=== PATIENT | male | born 2000 | race African-American/Black ===

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

== ENCOUNTER 2019-04-29 11:17 | Inpatient (IN) | payer OTHER, MEDICAID ==
[~2019-04-29] VITALS: Ht 154.9 cm; Wt 57.6 kg
[~2019-04-29 11:17] MED LIST changes: +NUTREN 2.0250 ML GT; +POTASSIUM CHLO20 ME1 GT
--- NOTE | 2019-04-29 11:34 | NUR ---
AGENCY DOCUMENTATION DONE BY Staff Name/Title - : [employer] [facility] User ID - : [id number] Agency Name - : [employer] Time Documented - From - : 699 To - : 1929
--- NOTE | 2019-04-29 11:37 | NUR ---
ASSUMED PATIENT CARE, NURSING ASSESSMENT COMPLETED.
[2019-04-29 12:54] LABS: PLATELET COUNT 146 x10^3mcL (130-400)
[2019-04-29 12:57] LABS: BASOPHIL % 0.2 % (0-2)
[2019-04-29 12:59] LABS: RED CELL DISTRIBUTION WIDTH 14.6 % (11.5-14.5)
[2019-04-29 13:18] LABS: CALCIUM 8.4 mg/dL (8.5-10.1); CARBON DIOXIDE 26.3 mmol/L (21-32); CHLORIDE SERUM 98 mmol/L (98-107); CREATININE SERUM 0.4 mg/dL (0.7-1.3); GFR1 > 60 mL/min; GLUCOSE SERUM 91 mg/dL (74-106); POTASSIUM SERUM 4.2 mmol/L (3.5-5.1); SODIUM SERUM 135 mmol/L (136-145)
[2019-04-29 13:27] LABS: T3 TOTAL 1.19 ng/mL
--- NOTE | 2019-04-29 13:29 | NUR ---
UNABLE TO START PERIPHERAL IV DESPITE MULTIPLE ATTEMPTS, DR MCPHERSON AWARE.
[2019-04-29 13:30] LABS: ALKALINE PHOSPHATASE 52 U/L (46-116); ALT/SGPT 30 U/L (16-63); AST/SGOT 26 U/L (15-37); BILIRUBIN TOTAL 0.3 mg/dL (0.20-1.00); TOTAL PROTEIN, SERUM 8.1 g/dL (6.4-8.2)
[2019-04-29 13:35] LABS: ALBUMIN 2.8 g/dL (3.4-5.0)
[2019-04-29 13:37] LABS: FREE T4 1.01 ng/dL (0.76-1.46); FREE THYROXINE INDEX 2.4 ug/dL (1.4-4.5); T4(THYROXINE) 6.8 ug/dL (4.7-13.3)
[2019-04-29 13:40] LABS: C REACTIVE PROTEIN 20.6 mg/dL (<=0.9)
[2019-04-29 15:18] LABS: ERYTHROCYTE SED RATE 69 mm/hr (0-15)
--- NOTE | 2019-04-29 15:49 | NUR ---
FR 16 FC INSERTED PER MD ORDER.
[2019-04-29 16:09] LABS: microscopic required? NO
[2019-04-29 16:13] LABS: urine erythrocyte NEGATIVE (NEGATIVE)
--- NOTE | 2019-04-29 16:55 | NUR ---
DISPO AND MEDICAL DECISION MAKING, INPATIENT ADMISSION FOR FURTHER MANAGEMENT. PATIENT CARE REPORT ENDORSED TO VICKY SWANSON.
[2019-04-29 17:08] VITALS: BP 105/51
[2019-04-29 17:09] VITALS: Ht 154.9 cm; Wt 57.6 kg
--- NOTE | 2019-04-29 18:45 | NUR ---
RECEIVED PT FROM ER, PT ADMIT FOR SUSHILA PNA, DEHYDRATION. PT IS AWAKE BUT NONVERBAL. UNABLE TO FOLLOW COMMAND. LUNG SOUND DIM BILATERAL, NO RESPIRATORY DISTRESS, PO2 94% IN ROOM AIR. PT IS ON TELE 8, ST, NO S/S OF CHEST PAIN, BOWEL SOUND PRESENT ALL 4 QUADRANTS, NO DISTENTION, PEG TUBE IS IN PLACE, PEDAL PULSE PRESENT BOTH FEET, NO EDEMA, BLE IS CONTRACTED. IV AT LEFT HAND, NO LEAKING, NO INFILTRAITON. ALL ADLS ASSIST, ALL NEED MET, CALL LIGHT IN REACH, WILL CONTINUE TO MONITOR.
--- NOTE | 2019-04-29 19:06 | NUR ---
AT 1700 - RECEIVED PATIENT FROM ER NURSE. ADMITTED WITH DX OF BILATERAL PNEUMONIA AND DEHYDRATION. PATIENT IS AWAKE, NON-VERBAL. HISTORY AND INITIAL ASSESSMENT DONE BY RESOURCE NURSE. PATIENT HAS HAD BM - SOFT, YELLOW STOOL. WASHED AND POSITIONED FOR COMFORT. SKIN APPEARS INTACT. IV INFUSING DOSE OF LEVAQUIN AND SECOND LITER OF BOLUS. GRECO CATHETER DRAINING YELLOW URINE AT 1800 - IV BOLUS COMPLETE. BP 144/105. HR 107. COMMENCED IV FLUID OF NS AT 100 ML/HR. ALSO COMMENCED ON IV ZOSYN. FIRST DOSE IN PROGRESS. 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 AT 1830 - URINE OUTPUT 600 ML VIA GRECO. PATIENT IS AWAKE, ALERT . MOVING IN BED. RECEIVED CALL FROM SHEBA, CLINIC PHYSICIAN AT [facility] IN [place]. TEL: [phone]. AT 1910 - CARE ENDORSED TO NIGHT NURSE.
--- NOTE | 2019-04-29 19:29 | NUR ---
PT IN BED AWAKE NON VERBAL DOESNT FOLLOW COMMANDS NO DISTRESS LUNGS DIM BILAT BASES, NO S/SX OF PAIN, DRY AND CRUSTY ORAL MUCOSA, IVF INFUSING WELL NS @ 100CC/HR IV ACCESS LEFT HAND PATENT NON INFIL, PEG TUBE CLAMPED, F/C DRAINING FREELY DARK YELLOW URINE OUTPUT, NO SEDIMENTS, SCD'S APPLIED FOR DVT PROPHYLAXIS, CONTRACTED BLE TELE #[address] HR @ 115, NO ECTOPIES, CONTACT ISOLATION MRSA NARES POSTED, SHIFT ASSESSMENT DONE, REPOSITIONED TO COMFORT CONT TO MONITOR.
[2019-04-29 22:19] VITALS: BP 119/90
--- NOTE | 2019-04-29 22:32 | NUR ---
DR. DIALLO MADE AWARE OF AMMONIA 56
--- NOTE | 2019-04-30 00:22 | NUR ---
PT AWAKE WITH BEHAV EPISODES OF BANGING SELF TOWARDS THE BED, BOUNCING LIKE MOVEMENT, RESTLESS, RISPERDAL GIVEN PER PRN ORDER FOR THE BEHAV, REPOSITIONED AND KEEP DRY AND CLEAN, BM X1 YELLOW AND PASTY, CONT TO MONITOR.
--- NOTE | 2019-04-30 00:41 | NUR ---
FOLLOWED UP PHARMACIST RE: VANCOMYCIN ORDER, PHARMACY TO DOSE, PER YUAN ROBERTSON MD DC'D VANCOMYCIN.
--- NOTE | 2019-04-30 03:24 | NUR ---
PT SLEEPING INTERMITTENT STILL WITH EPISODES OF BANGING SELF TOWARDS THE BED, NO DISTRESS, OCC NON PRODUCTIVE COUGH, ON IV ATB INDICATED, NO ADV REACTION REPOSITIONED ROUTINELY, VISUAL CHECKED AT INTERVALS.
[2019-04-30 06:41] VITALS: BP 147/96
[2019-04-30 07:13] LABS: BASOPHIL % 0.1 % (0-2); PLATELET COUNT 149 x10^3mcL (130-400); RED CELL DISTRIBUTION WIDTH 14.3 % (11.5-14.5)
[2019-04-30 07:14] LABS: CALCIUM 7.9 mg/dL (8.5-10.1); CARBON DIOXIDE 23.3 mmol/L (21-32); CHLORIDE SERUM 105 mmol/L (98-107); CREATININE SERUM 0.6 mg/dL (0.7-1.3); GFR1 > 60 mL/min; GLUCOSE SERUM 88 mg/dL (74-106); MAGNESIUM 1.9 mg/dL (1.8-2.4); PHOSPHOROUS 3.2 mg/dL (2.5-4.9); POTASSIUM SERUM 3.8 mmol/L (3.5-5.1); SODIUM SERUM 140 mmol/L (136-145)
--- NOTE | 2019-04-30 08:00 | NUR ---
RECEIVED THIS AM AWAKE, NON VERBAL. ROCKING BACK AND FORTH IN BED.SIDE RAILS UP AND PADDED FOR SAFETY. NO ACUTE RESP. DISTRESS NOTED. NO S/S OF PAIN OR DISCOMFORT. GRECO CATH IN PLACE DRAINING CLEAR YELLOW URINE TO GRAVITY. GTUBE CLAMPED AT THIS TIME. PT REPOSITIONED IN BED FOR COMFORT. WILL CONTINUE TO MONITOR.
[2019-04-30 08:13] VITALS: BP 117/81
--- NOTE | 2019-04-30 11:35 | NUR ---
PT APPEARS VERY DROWSY AND LETHARGIC. NO ACUTE RESP. DISTRESS NOTED. NOTIFIED. WILL CONTINUE TO MONITOR.
--- NOTE | 2019-04-30 15:13 | NUR ---
REPOSITIONED IN BED FOR COMFORT. NO ACUTE DISTRESS NOTED. NO S/S OF PAIN
[2019-04-30 16:23] VITALS: BP 118/70
--- NOTE | 2019-04-30 18:17 | NUR ---
GTUBE FEEDING STARTED, PT TOLERATING WELL. NO N/V NOTED.PT HAS LOOSE BM PRIOR TO START OF FEEDING, NONE AT THIS TIME. REPOSITIONED IN BED FOR COMFORT. NO ACUTE RESP. DISTRESS NOTED. NO S/S OF PAIN OR DISCOMFORT.
--- NOTE | 2019-04-30 19:05 | NUR ---
RECIEVED PT FROM PREVIOUS SHIFT NURSE. PT AWAKE, NONVERBAL, UNABLE TO FOLLOW COMMANDS. ON TELE #8, ST, HR 120. LUNG SOUNDS DIMINISHED, ON RA. NO SOB/DIFFICULTY BREATHING NOTED. G TUBE IN PLACE, TUBE FEED INFUSING AT 30ML/H. GRECO CATH IN PLACE, YELLOW OUTPUT NOTED. IV TO R. HAND, INTACT AND PATENT. BED IN LOWEST POSITION. CALL LIGHT WITHIN REACH. WILL CONTINUE TO MONITOR.
--- NOTE | 2019-04-30 19:07 | NUR ---
REMAINS IN NO DISTRESS, AWAKE BUT NON VERBAL. NO S/S OF OAIN OR DISCOMFORT. NO CHANGES IN VS. IVRF INFUSING WELL AND SITE CLEAR. MASON. WELL WITH TUBE FEEDING. REPOSITIONED IN BED WITH HOB ELEVETED. SIDE RAILS UP. WILL BE ENDORSED TO INCOMING SHIFT.
[2019-04-30 20:30] VITALS: BP 128/91
--- NOTE | 2019-04-30 22:00 | NUR ---
CHECKED RESIDUAL, LESS THAN 5ML NOTED AND REPLACED. TUBE FEEDING ADVANCED TO 40 ML/H.
--- NOTE | 2019-05-01 00:31 | NUR ---
PT RESTING IN BED. IN NO ACUTE DISTRESS. CALL LIGHT WITHIN REACH. BED IN LOWEST POSITION. WILL CONTINUE TO MONITOR.
[2019-05-01 05:41] VITALS: BP 117/79
--- NOTE | 2019-05-01 06:18 | NUR ---
PT CONTINUES TO REST IN BED IN NO ACUTE DISTRESS. NO PAIN/DISCOMFORT NOTED THROUGHOUT NIGHT. BED IN LOWEST POSITION. CALL LIGHT WITHIN REACH. WILL CONTINUE TO MONITOR.
[2019-05-01 06:29] LABS: BASOPHIL % 0.3 % (0-2); PLATELET COUNT 200 x10^3mcL (130-400)
[2019-05-01 06:56] LABS: CALCIUM 7.8 mg/dL (8.5-10.1); CARBON DIOXIDE 24.9 mmol/L (21-32); CHLORIDE SERUM 104 mmol/L (98-107); CREATININE SERUM 0.5 mg/dL (0.7-1.3); GFR1 > 60 mL/min; GLUCOSE SERUM 96 mg/dL (74-106); MAGNESIUM 1.9 mg/dL (1.8-2.4); PHOSPHOROUS 3.3 mg/dL (2.5-4.9); POTASSIUM SERUM 3.1 mmol/L (3.5-5.1); SODIUM SERUM 141 mmol/L (136-145)
[2019-05-01 07:03] LABS: RED CELL DISTRIBUTION WIDTH 14.7 % (11.5-14.5)
--- NOTE | 2019-05-01 07:35 | NUR ---
RECEIVED AWAKE, SMILING . NO ACUTE RESP. DISTRESS NOTED. ON RA SATS 96%. NO S/S OF DISCOMFORT. IVF INFUSING WELL. PT TOLERATING WELL WITH FEEDING. NO N/V NO RESIDUAL. SIDE RAILS UP AND PADDEDED. WILL CONTINUE WITH PLAN OF CARE.
[2019-05-01 09:52] VITALS: BP 126/78
[2019-05-01 13:00] VITALS: BP 142/105
--- NOTE | 2019-05-01 13:46 | NUR ---
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,grade 3 intraventricular hemorrhage,chronic lung disease ,aspiration pneumonia G-tube,GERD,healed tracheostomy and sleep-related hypoxia PSHx: ventricular shunt Labs: (05/01) K:3.1L, Ca:7.8L, Hct:39L (04/29) Ammonia:56H Meds: Cogentin, Colace, KCL, Lopressor, Phenobarbital, Risperdal, Valium, Valproic acid, Zestril and Zosyn Current nutrition Support: Jevity 1.2@ 40ml/hr GRV: (05/01) 0ml Ht: 61in, 5'1" Wt: 127#, 57.606kg BMI:24kg/m2(nornal) Bed scale: unable to obtain accurate weight as patient is on an air mattress IBW:112#51kg %IBW: 113% UBW: unable to obtain info Age: 18 y/o male Food Allergies: NKFA Skin:intact Jean:13 Edema: None GI: active bowel sounds Last BM:04/30 Consult: PEG TF Per H&P, pt was brought in for "more lethargic than normal" since yesterday. Per progress note 04/30, pt started Jevity at 40ml/hr. During visit, pt was seen laying in bed with TF running as ordered. Spoke to Dr. Aburto Sayed over the phonw and rec to increase TF rate to 55ml/hr better meet pts estimated needs. Per RN Fatemeh, pt is tolerating TF with no N/V. Problem with: N/V/D/C: No Problems with: Chewing/ Swallowing: pt with G-tube Current appetite: pt with G-tube Recent wt change:+12# since last admit in November 2018 %wt change: 11% Vitamin/Supplement use: Calcium Carbonate/Vitamin D3 (Calcium 600 + Vit D 400 Softgl) 1 EACH GT TID Special diet at home: Nutren 2.0 2.5 bottles Physical activity:No Nutrition education given (specify specific nutrition education and handout given): not appropriae due to patient with developmental delay Food-drug interactions? Phenobarbital Education given?no, due to pt with developmental delay Estimated Nutritional Needs Based on actual body weight 58kg Energy: 1450-1740kcal/d (25-30kcal/kg for maintenance) Protein:58-70g/d (1-1.2g/kg for maintenance) Fluid:4714-3883 ml/d (1 ml/kcal) or per doctor Nutrition Diagnosis 1. Inadequate enteral infusion rate related to low TF rate as evidenced by current TF rate only meets 66% caloric needs and 75% protein needs. Intervention 1. Recommend increase Jevity 1.2 to 55ml/hr to provide 1584kcal, 73g protein and 1065ml fluid. This meets 100% caloric needs and 104% protein needs. Recommend FWF:50ml q 6hr to provide an additional 300ml fluid. Monitor/Evaluate Goal: TF intake at least 75% of estimated needs Monitor: TF intake/tolerance, Labs, GI function and weights F/U in 2-3 days as high risk:05/03-
--- NOTE | 2019-05-01 13:46 | NUR ---
REPOSITIONED IN BED FOR COMFORT. NO ACUTE DISTRESS NOTED. NO S/S OF PAIN.
--- NOTE | 2019-05-01 16:40 | NUR ---
DOSING ON AND OFF, NO ACUTE DISTRESS NOTED.
[2019-05-01 16:56] VITALS: BP 147/98
--- NOTE | 2019-05-01 18:54 | NUR ---
REMAINS IN NO DISTRESS, AWAKE. NON VERBAL. NO S/S OF PAIN OR DISCOMFORT. TOLERATING WELL WITH FEEDING. NO N/V NOR DIARRHEA, NO RESIDUAL NOTED. VS REMAINS WNL. SIDE RAILS UP. WILL BE ENDORSED TO INCOMING SHIFT.
--- NOTE | 2019-05-01 19:10 | NUR ---
RECEIVED PT FROM PREVIOUS SHIFT NURSE. PT AWAKE, NONVERBAL. ON TELE #8, ST, HR 123. NO S/S PAIN/DISCOMFORT. LUNG SOUNDS DIMINISHED, ON RA. TUBE FEED INFUSING AT 40 ML/H. RESIDUAL CHECKED, LESS THAN 5ML REPLACED. AIR MATTRESS IN PLACE. LINEAR OPENING ON COCCYX. IV TO L. HAND, INTACT AND PATENT. BED IN LOWEST POSITION. CALL LIGHT WITHIN REACH. WILL CONTINUE TO MONITOR.
[2019-05-01 20:04] VITALS: BP 113/88
--- NOTE | 2019-05-01 22:07 | NUR ---
RESIDUAL LESS THAN 5ML, REPLACED. FEEDING INCREASED TO 45 ML/H, WILL CONTINUE TO MONITOR.
--- NOTE | 2019-05-02 00:48 | NUR ---
PT STICKING HANDS IN MOUTH CAUSING HIMSELF TO VOMIT. PER NURSE AT BOARD AND CARE, PT DOES THIS WHEN HIS FEEDING IS INFUSING TOO QUICKLY. RESIDUAL CHECKED, LESS THAN 5ML, REPLACED.
--- NOTE | 2019-05-02 03:07 | NUR ---
PT RESTING IN BED. RR EVEN AND UNLABORED. IN NO ACUTE DISTRESS. CALL LIGHT WITHIN REACH. BED IN LOWEST POSITION. WILL CONTINUE TO MONITOR.
[2019-05-02 05:20] VITALS: BP 133/93
[2019-05-02 06:44] LABS: BASOPHIL % 0.3 % (0-2); PLATELET COUNT 220 x10^3mcL (130-400)
--- NOTE | 2019-05-02 07:10 | NUR ---
RECEIVED PT FROM ALEKSEY RN. PT AWAKE AND ALERT, NONVERBAL. NO S/S OF ACUTE DISTRESS. NO S/S OF PAIN. RECEIVING RT TREATMENT AT THIS TIME. NO S/S OF ACUTE RESPIRATORY DISTRESS. NO SOB. RR EVEN/UNLABORED. IV WNL TO LH, PATENT AND FLUSHES WELL. GRECO IN TACT DRAINING TO GRAVITY, NO DEPENDENT LOOPS. NO N/V. NO REECE. NO DIZZINESS. NO S/S OF CHEST PAIN. PEG TO LLQ RUNNING AT 40CC/HR WITH FREE H20 FLUSH 50CC Q 4 HRS. <5 CC RESIDUAL OUTPUT. TOLERATING WELL AT THIS TIME. FALL PRECAUTIONS IN PLACE. PT IN ROOM CLOSE TO NURSES STATION. SIDE RAILS UP X2. SEIZURE PREC IN PLACE. AIR MATTRESS IN PLACE. BED IN LOW POSITION. CALL LIGHT WITHIN REACH. WILL CONTINUE TO MONITOR
[2019-05-02 07:12] LABS: CALCIUM 8.6 mg/dL (8.5-10.1); CARBON DIOXIDE 22.6 mmol/L (21-32); CHLORIDE SERUM 105 mmol/L (98-107); CREATININE SERUM 0.5 mg/dL (0.7-1.3); GFR1 > 60 mL/min; GLUCOSE SERUM 92 mg/dL (74-106); POTASSIUM SERUM 3.7 mmol/L (3.5-5.1); SODIUM SERUM 142 mmol/L (136-145)
[2019-05-02 07:30] LABS: RED CELL DISTRIBUTION WIDTH 14.9 % (11.5-14.5)
[2019-05-02 08:08] VITALS: BP 117/79
--- NOTE | 2019-05-02 12:00 | NUR ---
PT LAYING IN BED. NO S/S OF ACUTE DISTRESS. HOB ELEVATED >45 DEGREES. TUBE FEEDING RUNNING AT 40CC/HR. TOLERATING WELL. NO N/V. RESIDUAL <10CC. REPLACED. IV WNL TO LH, PATENT AND FLUSHES WELL. FALL PRECAUTIONS IN PLACE. SEIZURE PREC IN PLACE. AIR MATTRESS IN PLACE. CALL LIGHT WITHIN REACH. BED IN LOW POSITION. WILL CONTINUE TO MONITOR.
[2019-05-02 12:02] VITALS: BP 110/72
[2019-05-02 16:16] VITALS: BP 119/65
--- NOTE | 2019-05-02 16:40 | NUR ---
PT LAYING IN BED. NSR ON TELE, HR 96, NO SOB ON ROOM AIR. NO S/S OF PAIN. NO S/S OF ACUTE DISTRESS. IV WNL TO LH, PATENT AND FLUSHES WELL. TUBE FEEDING RUNNING AT 40CC/HR. TOLERATING WELL. NO N/V/D. 15CC RESIDUAL NOTED. BLE ELEVATED WITH PILLOW. SCDS IN PLACE. AIR MATTRESS IN PLACE. GRECO IN TACT DRAINING TO GRAVITY. PEG TUBE IN TACT TO LLQ ABD. BED IN LOW POSITION. SEIZURE PREC IN PLACE. CALL LIGHT WITHIN REACH. FALL PREC IN PLACE. WILL CONTINUE TO MONITOR.
--- NOTE | 2019-05-02 18:23 | NUR ---
PT LAYING IN BED. AWAKE, ALERT. NONVERBAL. UNABLE TO ASSESS ORIENTATION. PT ABLE TO LAUGH. UNABLE TO FOLLOW SIMPLE COMMANDS. FACE SYMMETRICAL. NO S/S OF PAIN. NO SOB ON ROOM AIR. CALM AT THIS TIME. PEG TUBE WNL TO LLQ ABD. TUBE FEEDING CHANGED AT 1800, RUNNING AT 40CC/HR, TOLERATING WELL, WITH FREE H2O FLUSH 50CC Q4HRS. NO N/V. RESIDUAL OUTPUT 10CC, REPLACED. GRECO IN TACT DRAINING CLEAR/YELLOW URINE. OUTPUT 550CC. IV WNL TO LH, 22 GAUGE. PATENT AND FLUSHES WELL. FALL PRECAUTIONS IN PLACE. SEIZURE PRECAUTIONS IN PLACE. SIDE RAILS UP X2. AIR MATTRESS IN PLACE. WILL ENDORSE TO ONCOMING SHIFT.
--- NOTE | 2019-05-02 19:27 | NUR ---
RECEIVED PT FROM PREVIOUS SHIFT. PT AWAKE/NONVERBAL. NO S/S OF DISTRESS ON RA. IV PATENT TO L HAND. SEIZURE PRECAUTIONS IN USE. CALL LIGHT WITHIN REACH, BED IN LOW POSITION. WILL CONTINUE TO MONITOR.
[2019-05-02 20:50] VITALS: BP 112/57
--- NOTE | 2019-05-03 03:19 | NUR ---
PT RESTING IN NO ACUTE DISTRESS. RR EVEN AND UNLABORED. CALL LIGHT WITHIN REACH, BED IN LOW POSITION. WILL CONTINUE TO MONITOR.
[2019-05-03 05:37] VITALS: BP 103/64
[2019-05-03 06:57] LABS: BASOPHIL % 0.5 % (0-2); PLATELET COUNT 228 x10^3mcL (130-400)
[2019-05-03 07:07] LABS: RED CELL DISTRIBUTION WIDTH 14.9 % (11.5-14.5)
[2019-05-03 07:13] LABS: CALCIUM 8.8 mg/dL (8.5-10.1); CARBON DIOXIDE 24.9 mmol/L (21-32); CHLORIDE SERUM 105 mmol/L (98-107); CREATININE SERUM 0.6 mg/dL (0.7-1.3); GFR1 > 60 mL/min; GLUCOSE SERUM 76 mg/dL (74-106); POTASSIUM SERUM 4.2 mmol/L (3.5-5.1); SODIUM SERUM 144 mmol/L (136-145)
[2019-05-03 07:36] VITALS: BP 122/74
--- NOTE | 2019-05-03 07:52 | NUR ---
AT 0710 - RECEIVED PATIENT FROM NIGHT NURSE. AWAKE, ALERT. NON-VERBAL. MONITOR SHOWING SINUS TACH; RATE 119. RESPIRATIONS REGULAR. NO SOB NOTED. IV AT TKO RATE. RECEIVING PEG TUBE FEEDING WITH WITH JEVITY AT 40 ML/HR.
--- NOTE | 2019-05-03 11:40 | NUR ---
RECEIVED CALL FROM CASE MANAGEMENT WITH INFORMATION THAT PATIENT WILL BE DISCHARGED BACK TO [facility] AT 1530. CONTACTING RESIDENT DOCTOR FOR DISCHARGE ORDERS.
[2019-05-03] MEDS ORDERED: AUG250L PO (12:11)
[2019-05-03 12:32] VITALS: BP 113/83
--- NOTE | 2019-05-03 13:19 | NUR ---
AT 1230 - GRECO CATHETER REMOVED INTACT WITH BALLOON DEFLATED, PER ORDERS.
[2019-05-03 14:07] VITALS: BP 113/83
--- NOTE | 2019-05-03 15:26 | NUR ---
PATIENT HAS VOIDED POST REMOVAL OF GRECO CATHETER. HAS HAD SOFT BM. WASHED AND PREPARED FOR DISCHARGE. TAKEN OFF CARDIAC MONITORING. TUBE FEEDING DISCONTINUED. PEG TUBE CLAMPED. IV CATHETER REMOVED INTACT. EXPECTING TRANSPORT FROM [facility].
--- NOTE | 2019-05-03 15:55 | NUR ---
PRINTED DISCHARGE INSTRUCTIONS GIVEN AND EXPLAINED TO CAREGIVER. PRESCRIPTION PROVIDED. PATIENT DRESSED AND PLACED IN OWN WHEELCHAIR. DISCHARGED TO BOARD AND CARE IN WHEELCHAIR.
== END 2019-05-03 15:54 | DRG 137 ==
LOC: ED 11:17 → DU 15:59 → EDBEDREQ 16:00 → DU 17:05
PROVIDERS: Specialist; ADMIT General Practice
DX: J69.0 Pneumonitis due to inhalation of food and vomit (principal); G93.49 Other encephalopathy; E87.1 Hypo-osmolality and hyponatremia; M41.9 Scoliosis, unspecified; E86.0 Dehydration; E02 Subclinical iodine-deficiency hypothyroidism; R62.50 Unspecified lack of expected normal physiological development in childhood; G80.9 Cerebral palsy, unspecified; Z93.1 Gastrostomy status; Z99.3 Dependence on wheelchair; Z98.2 Presence of cerebrospinal fluid drainage device
CPT/HCPCS: 36600; 84439; G0378; G0480; J1956; J2543; J3370; J7030; J7050; J7620; Q0092

== ENCOUNTER 2019-05-09 17:07 | Emergency (ER) | payer OTHER, MEDICAID ==
[~2019-05-09] VITALS: Ht 147.3 cm; Wt 49.9 kg
[~2019-05-09 17:07] MED LIST changes: +AUG250L PO
[2019-05-09 17:15] VITALS: Ht 147.3 cm; Wt 49.9 kg
[2019-05-09 18:17] LABS: BASOPHIL % 0.2 % (0-2); PLATELET COUNT 239 x10^3mcL (130-400)
[2019-05-09 18:18] LABS: RED CELL DISTRIBUTION WIDTH 15.1 % (11.5-14.5)
[2019-05-09 18:26] LABS: CALCIUM 8.3 mg/dL (8.5-10.1); CARBON DIOXIDE 28.6 mmol/L (21-32); CHLORIDE SERUM 99 mmol/L (98-107); CREATININE SERUM 0.7 mg/dL (0.7-1.3); GFR1 > 60 mL/min; GLUCOSE SERUM 78 mg/dL (74-106); SODIUM SERUM 135 mmol/L (136-145)
[2019-05-09 18:30] LABS: ALKALINE PHOSPHATASE 58 U/L (46-116); ALT/SGPT 25 U/L (16-63); AST/SGOT 25 U/L (15-37); BILIRUBIN TOTAL 0.21 mg/dL (0.20-1.00)
[2019-05-09 18:31] LABS: ALBUMIN 2.8 g/dL (3.4-5.0); TOTAL PROTEIN, SERUM 8.4 g/dL (6.4-8.2)
[2019-05-09 19:56] LABS: microscopic required? NO
[2019-05-09 20:16] LABS: urine erythrocyte NEGATIVE (NEGATIVE)
[2019-05-09 23:07] VITALS: BP 129/87
== END 2019-05-09 23:07 | disposition home or self-care (01) ==
LOC: ED 17:07
PROVIDERS: Student in an Organized Health Care Education/Training Program
DX: J18.9 Pneumonia, unspecified organism (principal); J44.9 Chronic obstructive pulmonary disease, unspecified; I10 Essential (primary) hypertension; K21.9 Gastro-esophageal reflux disease without esophagitis; Z98.890 Other specified postprocedural states
CPT/HCPCS: 36415; Q0092

== ENCOUNTER 2019-05-10 21:44 | Inpatient (IN) | payer OTHER, MEDICAID ==
[~2019-05-10] VITALS: Ht 154.9 cm; Wt 55.5 kg
--- NOTE | 2019-05-10 22:04 | NUR ---
PT BIBA FROM [facility] FOR EVAL OF TACTILE FEVER X1 DAY, PER EMS REPORT PT GIVEN TYLENOL AND ADVIL TODAY AT HOME FACILITY. PT AWAKE, GCS 9 (E-4 V-1 M-4) NORMAL TO BASELINE; RESP E/U, APPEARS IN NO DISTRESS. ABDOMEN SOFT, SLIGHTLY DISTENDED, NONTENDER TO PALPATION, SKIN W/D/I, SLIGHT REDNESS AND WARMTH NOTED TO L KNEE. MSE COMPLETED BY DR BENSON.
--- NOTE | 2019-05-10 22:14 | NUR ---
PCXR COMPLETED AT BEDSIDE.
[2019-05-10 22:18] LABS: CARBON DIOXIDE 26.5 mmol/L (21-32); CHLORIDE SERUM 99 mmol/L (98-107); CREATININE SERUM 0.5 mg/dL (0.7-1.3); GFR1 > 60 mL/min; GLUCOSE SERUM 92 mg/dL (74-106); POTASSIUM SERUM 3.8 mmol/L (3.5-5.1); SODIUM SERUM 134 mmol/L (136-145)
[2019-05-10 22:23] LABS: ALKALINE PHOSPHATASE 62 U/L (46-116); ALT/SGPT 30 U/L (16-63); AST/SGOT 30 U/L (15-37); BILIRUBIN TOTAL 0.16 mg/dL (0.20-1.00)
[2019-05-10 22:32] LABS: ALBUMIN 2.8 g/dL (3.4-5.0); CK-MB 1.5 ng/mL (0-3.6)
--- NOTE | 2019-05-10 22:38 | NUR ---
STRAIGHT CATHED FOR URINE WITH ASSISTANCE OF BRENDEN GARCIA. 100CC CLEAR YELLOW URINE OUTPUT. SENT TO LAB.
[2019-05-10 22:43] LABS: BASOPHIL % 0.1 % (0-2); PLATELET COUNT 252 x10^3mcL (130-400)
[2019-05-10 23:38] LABS: UA SPECIFIC GRAVITY 1.015 (1.005-1.035); microscopic required? YES; urine erythrocyte TRACE (NEGATIVE)
--- NOTE | 2019-05-11 00:09 | NUR ---
PT HAD LARGE WET BM IN [facility]. CHANGED AND CLEANED PT, CHANGED LINENS AND DIAPER.
--- NOTE | 2019-05-11 00:58 | NUR ---
REPORT CALLED TO RUKHSANA PERRY FOR ADMISSION
[2019-05-11 01:20] LABS: CHOLESTEROL/HDL RATIO 4.3
[2019-05-11 01:22] VITALS: BP 114/79
[2019-05-11 01:49] VITALS: BP 114/79
--- NOTE | 2019-05-11 05:34 | NUR ---
NO SIGNIFICANT CHANGES TO REPORT, PT COMPLIED WITH NURSING CARE THROUGHOUT THE SHIFT WITH NO ACUTE EVENTS OVERNIGHT. NO ACUTE DISTRESS OBSERVED AT THIS TIME, PT LAYING IN BED, BREATHING EVEN AND UNLABORED. COMFORT AND SAFETY MEASURES MAINTAINED. ALL NEEDS ASSESSED AND ATTENDED TO. CALL LIGHT WITHIN REACH. WILL CONTINUE TO MONITOR AND ENDORSE CARE TO DAY SHIFT NURSE
[2019-05-11 05:48] VITALS: BP 101/47
[2019-05-11 07:11] LABS: CALCIUM 7.3 mg/dL (8.5-10.1); CARBON DIOXIDE 25.3 mmol/L (21-32); CHLORIDE SERUM 106 mmol/L (98-107); CREATININE SERUM 0.5 mg/dL (0.7-1.3); GFR1 > 60 mL/min; GLUCOSE SERUM 89 mg/dL (74-106); POTASSIUM SERUM 3.8 mmol/L (3.5-5.1); SODIUM SERUM 139 mmol/L (136-145)
[2019-05-11 07:19] LABS: BASOPHIL % 0.3 % (0-2); PLATELET COUNT 208 x10^3mcL (130-400)
[2019-05-11 07:23] LABS: RED CELL DISTRIBUTION WIDTH 15.3 % (11.5-14.5)
--- NOTE | 2019-05-11 07:25 | NUR ---
RECEIVED PT FROM ALEKSEY RN. PT FOUND RESTING IN BED WITH BOTH EYES CLOSED. NO S/S OF ACUTE DISTRESS. MEDSURG. NO SOB ON ROOM AIR, RR EVEN/UNLABORED. SEIZURE PRECAUTIONS IN PLACE. AIR MATTRESS IN PLACE. PT LAYING TO LEFT SIDE. IV WNL TO LW, IV FLUIDS FLOWING. NO REDNESS, NO SWELLING, NO INFILTRATION. FALL PRECAUTIONS IN PLACE. PT IN ROOM CLOSE TO NURSES STATION. SIDE RAILS UP X2. PEG IN TACT TO ABDOMEN. BED IN LOW POSITION. CALL LIGHT WITHIN REACH. WILL CONTINUE TO MONITOR.
[2019-05-11 08:53] VITALS: BP 105/67
--- NOTE | 2019-05-11 10:00 | NUR ---
TUBE FEEDING STARTED AT 30CC/HR WITH FREE H2O FLUSH 100CC Q 4HRS PER PHYSICIAN ORDER. PEG TUBE TO LUQ ABD IN TACT, FLUSHES WELL. 0 RESIDUAL OUTPUT NOTED. SCHEDULED TO ADVANCE 10CC AT 1999 TO NOC NURSE IF PT TOLERATING TUBE FEEDING WELL PER PHYSICIAN ORDER. HOB ELEVATED >45 DEGREES. WILL CONTINUE TO MONITOR.
--- NOTE | 2019-05-11 11:25 | NUR ---
PT LAYING IN BED RESTING WITH BOTH EYES CLOSED. EASILY AROUSABLE TO TACTILE STIMULI. NO S/S OF ACUTE DISTRESS. IV ANTIBIOTICS RUNNING TO LW, IV PATENT AND FLUSHES WELL. PT REPOSITIONED TO RIGHT SIDE. NO S/S OF PAIN. HOB ELEVATED >45 DEGREES. PEG TUBE FEEDING JEVITY 1.2 RUNNING AT 30CC/HR. TOLERATING WELL AT THIS TIME. NO N/V/D. <5 CC RESIDUAL OUTPUT NOTED, REPLACED. BED IN LOW POSITION. CALL LIGHT WITHIN REACH. WILL CONTINUE TO MONITOR.
--- NOTE | 2019-05-11 15:10 | NUR ---
Discount pharmacy card [facility] given to patient by Olayinka Baker.
[2019-05-11 16:24] VITALS: BP 128/83
--- NOTE | 2019-05-11 18:35 | NUR ---
PT AWAKE/ALERT, NONVERBAL, LAUGHS SPONTANEOUS. NO S/S OF ACUTE DISTRESS. NO S/S OF PAIN. NO SOB ON ROOM AIR. PEG TUBE FEEDING RUNNING, JEVITY 1.2. TOLERATING TUBE FEEDING WELL. RESIDUAL OUTPUT <5CC, REPLACED, FREE H2O FLUSH 100CC Q 4HRS. IV WNL TO LW, PATENT AND FLUSHES WELL. IV FLUIDS FLOWING. NO REDNESS, NO SWELLING, NO INFILTRATION. HOB ELEVATED [address]ES[address] F[address] PRECAUTIONS IN PLACE. SIDE RAILS UP X2. SEIZURE PRECAUTIONS IN PLACE. BED IN LOW POSITION. CALL LIGHT WITHIN REACH. WILL ENDORSE TO ONCOMING SHIFT.
[2019-05-11 20:00] VITALS: BP 117/89
--- NOTE | 2019-05-11 20:00 | NUR ---
PATIENT RECEIVED IN BED AWAKE,ALERT, NON VERBAL,MOANS WORDS THAT ARE INCOMPREHENSIBLE HX; MR,DEVELOPMENTALLY DELAYED,CP, SZ., BREATHING EVEN AND UNLABORED, BS DIMINISHED BASES, ON ROOM AIR SAT 100%. MED/SURG PATIENT, NO S/S NOR INDICATION OF CHEST PAINS.HR=82BPM.RECEIVED WITH GTUBE FEEDING OF JEVITY 1.2 AT 30 ML/HR VIA KANGAROO PUMP, CHECKED RESIDUAL WAS 20 ML REPLACED, HOB AT 30 DEGREES ANGLE, NO N/V NOTED. SCD TO BLE IN USE, PULSES MODERATE. PATIENT CONTRACTED, MAX ASSIST, AIR MATTRESS IN PLACE. HEPLOCK TO LEFT WRIST INTACT SITE CLEAR, TAPE SECURED. NO SZ ACTIVITY THIS TIME, PADDED RAIL SUP. SAFETY/FALL PRECAUTIONS MAINTAINED. WILL CONTINUE TO MONITOR.
--- NOTE | 2019-05-11 20:30 | NUR ---
PATIENT INCONTINENT OF LARGE BROWN LOOSE STOOL AND ALSO UA. PATIENT CLEANED AND KEPT DRY AND REPOSITIONED. INCREASED TUBE FEEDING RATE TO 40 ML/HR.
--- NOTE | 2019-05-11 21:04 | NUR ---
SCHEDULED MEDICATIONS WERE GIVEN VIA GT. RESIDUAL WAS 20 ML. REPLACED. WILL CONTINUE TO MONITOR.
--- NOTE | 2019-05-11 23:00 | NUR ---
PATIENT WAS CHECKED THIS TIME, INCONTINENT OF STOOL AND UA, AND NOTED TO HAVE VOMITED YELLOWISH TO BROWNISH FLUID, WILL REPORT TO DR MOTLEY.
--- NOTE | 2019-05-11 23:00 | NUR ---
FEEDING STOPPED. WILL INFORM MD ABOUT EPISODE OF VOMITING.
--- NOTE | 2019-05-11 23:29 | NUR ---
PATIENT INCONTINENT OF STOOL, LOOSE BROWN LARGE AMT. CLEANED AND KEPT DRY AND REPOSITIONED TO RIGHT SIDE WITH PILLOW SUPPORTING BACK, HOB AT 30 DEGRESS ANGLE. WILL CONTINUE TO MONITOR.
--- NOTE | 2019-05-11 23:30 | NUR ---
DR MOTLEY INFORMED ABOUT PATIENT VOMITING AND COLOR OF VOMITUS. MD STATED WILL ORDER CXR.
--- NOTE | 2019-05-12 00:30 | NUR ---
CXR DONE AT BEDSIDE THIS TIME.
--- NOTE | 2019-05-12 01:03 | NUR ---
PATIENT INCONTINENT OF BROWN LOOSE LARGE AMT OF STOOL CLEANED AND KEPT DRY. TURNED TO HIS BACK THIS TIME.
--- NOTE | 2019-05-12 01:32 | NUR ---
DR MOTLEY READ RESULT OF CXR POST PATIENT VOMITING.
[2019-05-12 06:13] VITALS: BP 115/70
[2019-05-12 06:24] LABS: BASOPHIL % 0.4 % (0-2); PLATELET COUNT 239 x10^3mcL (130-400)
[2019-05-12 06:32] LABS: RED CELL DISTRIBUTION WIDTH 15.1 % (11.5-14.5)
[2019-05-12 06:33] LABS: CALCIUM 7.7 mg/dL (8.5-10.1); CHLORIDE SERUM 108 mmol/L (98-107); CREATININE SERUM 0.5 mg/dL (0.7-1.3); GFR1 > 60 mL/min; GLUCOSE SERUM 78 mg/dL (74-106); PHOSPHOROUS 2.7 mg/dL (2.5-4.9); POTASSIUM SERUM 3.5 mmol/L (3.5-5.1); SODIUM SERUM 144 mmol/L (136-145)
--- NOTE | 2019-05-12 06:39 | NUR ---
RESUMED FEEDING AT A RATE OF 30 ML/HR AT 0600. PATIENT WAS INCONTINENT OF URINE, CLEANED AND KEPT DRY,APPLIED HYDROGUARD TO RECTAL AREA D/T ERYTHEMA NOTED 2/2 LOOSE STOOL DURING THE SHIFT. IV SITE TO LW INTACT AND PATENT, SECURED WITH TAPE. PATIENT TURNED AND REPOSITIONED Q2HRS, KEPT HOB AT 30 DEGREES ANGLE. NO SZ ACTIVITY DURING THE SHIFT. SAFETY/FALL/SZ PRECAUTIONS OBSERVED. WILL ENDORSE CONTINUITY OF CARE TO INCOMING NURSE.
[2019-05-12 07:06] LABS: CARBON DIOXIDE 24.2 mmol/L (21-32)
--- NOTE | 2019-05-12 07:30 | NUR ---
BEDSIDE HANDS OFF AND INTRODUCTION PERFORMED WITH INCOMING NURSE CINDI.
[2019-05-12 08:00] VITALS: BP 122/82
--- NOTE | 2019-05-12 08:00 | NUR ---
RECEIVED PATIENT AWAKE AND SMILING AT STAFF. CONTINUED ON FEEDING OF JEVITY VIA KANGAROO PUMP AND SO FAR TOLERATED AT 30CC PER HOUR. IV INTACT AND PATIENT HAS NOTED VITALS AT THIS TIME AT 98.3, 89, 18, 122/82, 94% ON ROOM AIR. PATIENT HAS BEEN RECEIVING HHN AND IS WITH POSITIVE INFILTRATE OR ASPIRATION DUE TO HIS NOT TOLERATING THE FEEDING DUE TO IMPACTED BOWEL. NOTED FECAL IMPACTION ON XRAY. PATIENT ON SEIZURE PRECATIONS AND HAS BEEN ON ZOSYN IVPB AND NO ADVERSE REACTION NOTED. PATIENT HAS NOTED LAB OF CA AT 7.7, AND ALBUMEN AT 2.8. PATIENT IS NON VERBAL BUT DOES NOT APPEAR TO HAVE ANY SIGNS OF DISCOMFORT. COUGH NOTED BUT UNPRODUCTIVE AT THIS TIME. PATIENT HAS DIMINISHEHD BREATH SOUNDS WITH SOME FINE RALES.
--- NOTE | 2019-05-12 10:05 | NUR ---
PATIENT HAS HAD A SMALL EMESIS AND DOES NOT SEEM IN PAIN OR DISCOMFORT. THE ABDOMEN IS DISTENDED AND MODERATELY FIRM. PATIENT AHS BEEN [id number] AND HOB UP WITH THE FEEDING. WILL CONTINUE OT ARIELLEIRO FOR RESIDUAL AND RUN THE FEEDING AT 30C ROHAN PER REPORT E HAS NOT BEEN TOLERATING HIGHER RATE. IV INTACT AND PATIENT AHS NOTED CONTRACTED EXTREMITES. SMILING AND LAUGHING AND VERY PLEASANT WITH CARE.
--- NOTE | 2019-05-12 13:10 | NUR ---
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 Grade 3 intraventricular hemorrhage, chronic lung disease, Aspiration pneumonia, G-tube, GERD, Healed tracheostomy PSHx: ventricular shunt Labs: BUN 5.0L, CREAT 0.5L, CA 7.7L, HGB 12.7L Meds: Calcium carbonate, Lopressor, valproic acid, Zofran, zosyn Diet: TF (PEG) Jevity 1.2 @ 30 ml/hr, goal 55 ml/hr, FWF 100 cc Q4H PO Intake: NPO Ht: 154.94 cm (61") Wt: 55.4 kg (122#) BMI: 23.1 kg/m2 Bed scale: 49.1 kg IBW: 112# (51 kg) %IBW: 108 UBW: unable to access Age: 18/M Food Allergies: NKFA Skin: erythema LLE Jean: 16 Edema: none GI: Last BM: 05/11 Trigger: tube feeding Per H&P, Pt is a 18-year-old male with history of Seizure disorder, Cerebral Palsy, Static encephalopathy, Chronic Lung Disease and Aspiration Pneumonia who was brought to the ER from [facility]& for evaluation of tactile fever for 1 day. RDN Visit (05/12): Patient is unable to communicate due to medical condition. TF Jevity 1.2 was running @ 30 ml/hr, FWF 100 cc Q4H. Per VICKY Yeung, TF has not been advanced to goal rate as patient has been vomiting. Per RN Pt has fecal impaction. Spoke with Dr. Walker, she will look into his current medication and add a laxative/stool softener. Problem with: N/V/D/C: vomiting and loose stools Problems with: Chewing/Swallowing: yes, TF dependent Current appetite: unable to access Recent wt change: lost 6# since admission %wt change: 11 Vitamin/Supplement use: unable to access Special diet at home: unable to access Physical activity: bed bound Nutrition education given: not possible d/t patient condition Food-drug interactions: none Education given: n/a Estimated Nutritional Needs Based on current body weight 55.4 kg Energy: 6536-9063 kcal/d (25-30 kcal/kg) Protein: 66-77 g/d (1.2-1.4 g/kg) - preserve LBM Fluid: 9056-9396 ml/d (1 ml/kcal) or per doctor Nutrition Diagnosis 1. Inadequate enteral nutrition infusion related to vomiting as evidenced by TF rate not progressed to goal of 55 ml/hr. Intervention 1. Recommend increasing TF Jevity 1.2 to goal rate of 55 ml/hr. This will provide 1580 kcal and 73g protein. This will meet 100% of estimated calorie and protein needs of the patient. 2. Consider bowel regimen for constipation. Discussed recommendations with Dr. Walker. Monitor/Evaluate Goal: TF intake at least 75% of estimated needs Monitor: TF intake/ tolerance, Labs, GI function F/U in 2-3 days as high risk 05/14-
--- NOTE | 2019-05-12 13:17 | NUR ---
UPPED THE FEEDING NOW TO 35 AND WILL MONITOR FOR TOLERANCE. THE PATIENT HAD A LARGE LOOSE STOOL PER THE TECHNICAL OPERATOR. PATIENT IS IN NO ACUTE DISTRESS AT THIS TIME
--- NOTE | 2019-05-12 14:33 | NUR ---
PATIENT HAS HAD SMALL EMESIS WHEN STAFF TURNS HIM. THE RESIDUAL IS MINIMAL AND HE HAS HAD A VERY LARGE LOOSE STOOL. RATE IS AT 35CC PER HOUR AT THIS TIME WITH THE GOAL TO BE AT 50C.
[2019-05-12 16:14] VITALS: BP 103/64
--- NOTE | 2019-05-12 19:04 | NUR ---
INCREASED THE FEEDIGN NOW TO 40 HE TOLERATE THE 35 AND HAD HAD TWO VERY LARGE BMS. WILL ENDORSE TO THE NEXT SHIFT INDICATED.
--- NOTE | 2019-05-12 19:40 | NUR ---
RECEIVED REPORT FROM DAY SHIFT RN. PT RESTING IN BED. AWAKE AND ALERT. NONVERBAL. NO SOB NOTED. BREATHING EVEN AND UNLABORED. GTUBE FEEDING JEVITY AT 40 ML/HR. NO RESIDUAL. IV TO LEFT WRIST, NS INFUSING. SAFETY MEASURES IN PLACE. BED IN LOWEST POSITION. SIDE RAILS WITH PADS. BED ALARM ON. WILL ANTICIPATE NEEDS.
[2019-05-12 20:36] VITALS: BP 111/71
--- NOTE | 2019-05-13 02:40 | NUR ---
PT VOMITED. HELD TUBE FEEDING. CLEANED PT AND MADE COMFORTABLE. HOB ELEVATED. NO RESP DISTRESS NOTED.
[2019-05-13 05:15] VITALS: BP 124/76
[2019-05-13 06:26] LABS: CALCIUM 7.8 mg/dL (8.5-10.1); CARBON DIOXIDE 23.6 mmol/L (21-32); CHLORIDE SERUM 107 mmol/L (98-107); CREATININE SERUM 0.5 mg/dL (0.7-1.3); GFR1 > 60 mL/min; GLUCOSE SERUM 74 mg/dL (74-106); PHOSPHOROUS 2.4 mg/dL (2.5-4.9); SODIUM SERUM 143 mmol/L (136-145)
[2019-05-13 06:27] LABS: BASOPHIL % 0.2 % (0-2); PLATELET COUNT 260 x10^3mcL (130-400)
--- NOTE | 2019-05-13 06:50 | NUR ---
PT RESTED AT INTERVALS DURING SHIFT. NO SOB NOTED. BREATHING EVEN AND UNLABORED ON ROOM AIR. NO FACIAL GRIMACING. HAD WATERY STOOL X2. CLEANED AND MADE PT COMFORTABLE. REPOSITIONED Q2H. HOB ELEVATED. SAFETY MEASURES MAINTAINED. SZ PRECAUTION IN PLACE. NO SZ NOTED DURING SHIFT. ALL NEEDS ATTENDED TO. WILL ENDORSE CONTINUITY OF CARE TO ONCOMING RN.
--- NOTE | 2019-05-13 07:00 | NUR ---
TUBE FEEDING JEVITY 1.2 RESUMED AT 30 ML/HR. 40 ML RESIDUAL, REPLACED.
--- NOTE | 2019-05-13 08:00 | NUR ---
PATIENT RECEIVED WAKE AND NON VERBAL WITH CONTRACTED EXTREMTIES AND SOME ONE PLUS BRAN TO THE LOWER EXXTREMITES. SCDS IN PLACE AND PATEINT S SKIN INTACDT AND HAS BEEN WITH BOWEL SOUNDS ACTIVE BUT STILL NOT TOLERATING THE FEEDING HOPED. PATIENT NOW AT 30CC PER HOUR OF JEVITY. THE LUNGS ARE WITH SOME RALE STO THE UPPER BILTERAL LOBES AND HAS DIMINISHED IN THE BASES. PATEINT NOE VITALS AT THIS TIME AT 96.7, 99, 18, 124/76, 92 MAP, 94%. PATIENT HAS NOTED LABS OF POTASSIUM AT 3.0, BUN AT 2.0, ALBUMIN AT 2.8, LIPASE AT 69, PHOS AT 2.4. PATIENT HAS HAD LARGE BMS BUT STILL WITH INTERMITTANT VOMITING. PATIENT WITH HOB UP WITH FEEDING ADN HAS NO INDICATION OF DISCOMFORT HE IS SMILING AND LAUGHING MOST OF THE TIME. ALTHOUGH NON VERBAL HE HAS BEEN ABLE TO RELATE TO STAFF AND IS PLEASANT AND COOPERATIVE WITH CARE. IV INTACT AND TOTAL CARE INDICATED. WILL CONTINUE TO MONITOR.
[2019-05-13] MEDS ORDERED: REG10 PO (09:37)
[2019-05-13] MEDS ORDERED: LEVAQUIN750 MG PO (09:38)
[2019-05-13 10:04] VITALS: BP 90/54
--- NOTE | 2019-05-13 10:50 | NUR ---
ADVISED THE STABLE HAND OF PATIENT INTOLERANCE OF GURPREET MEDICATIONS EARLIER. HE WAS GIVEN POTASSIUM ALONG WITH THE OTHER MEDICATIONS IN ABOUT 40 CC OF FLUID. HE SHORTLY AFTER THREW UP ORANGE COLORED FLUIDS SOILING HIS CHEST FROM THE NECK TO GURPREET NIPPLELINE. THIS WAS MOST LIKELY THE MEDICATIONS GIVEN. HE HAS PERIODICALLY SPIT UP BILE-LIKE OF SMALLER AMOUNTS. THE G TUBE FEEDING RUNNING AT 30 CC PER HOUR. THE RESIDUALS HAVE BEEN MINIMAL BUT THE PATIENT HAS WITH ANY ATTENPT TO INCREASE THROW UP. STABLE HAND ORDERED KUB INDICATED.
--- NOTE | 2019-05-13 14:11 | NUR ---
SCREEN FOR LOW LIZZY SCALE AT RISK CONTINUE PRESSURE ULCER INJURY PREVENTION INTERVENTIONS: -TURN AND REPOSITION PATIENT Q 2H OFFLOAD LEFT AND RIGHT HIPS -ASSESS AND MONITOR SKIN CONDITION DURING POSITION CHANGE -OFFLOAD BILATERAL HEELS BY PLACING PILLOWS UNDER CALVES AT ALL TIMES, UNLESS OTHERWISE CONTRAINDICATED -PRESSURE REDISTRIBUTION SURFACE THERAPY -KEEP SKIN CLEAN AND DRY AT ALL TIMES. -CLEANSE WITH SOAP AND WATER TO BUTTOCKS, PAT DRY AND APPLY Z GUARD TO BUTTOCKS GROOVE BID AND PRN IS SOILING
--- NOTE | 2019-05-13 17:47 | NUR ---
PHENERGAN SEEMS TO BE WORKING AT THIS TIME. HE HAS NOT VOMITED BUT IS SO SLEEPY AND ALMOST APPEARS CONFUSED WITH THIS MEDICATION. PATIENT HAS ABOUT 20 CC OF RESIDUAL BEFORE INFUSION OF THE MEDICATIONS IN ABOUT 30CC OF WATER. WILL MONITOR FOR TOLERANCE.
[2019-05-13 18:10] VITALS: BP 135/98
--- NOTE | 2019-05-13 20:00 | NUR ---
Awake and responsive. Non verbal. No respiratory distress noted on room air. No cues of pain. Smiles and makes sounds. GTube feeding ongoing at this time @ 30ml/hr. No residuals noted. No vomiting. Repositioned for comfort.
[2019-05-13 21:12] VITALS: BP 128/93
--- NOTE | 2019-05-13 23:12 | NUR ---
Bedtime care done. Incontinent, good pericare rendered. Turned and repositioned. Aspiration, seizure precaution observed. Padded siderails up.
--- NOTE | 2019-05-14 04:32 | NUR ---
Resting in bed. Afebrile. No significant change in condition noted. No cues of pain. No SOB. gtube feeding tolerated well. No residuals noted. No n/v. HOB kept elevated. Turned and repositioned q2h. Kept pressure off back and bony prominences. Heels flaoted. On low air loss mattress. Cont.on IV Zosyn.
[2019-05-14 05:37] VITALS: BP 99/55
[2019-05-14 07:06] LABS: CALCIUM 7.6 mg/dL (8.5-10.1); CARBON DIOXIDE 21.2 mmol/L (21-32); CHLORIDE SERUM 112 mmol/L (98-107); CREATININE SERUM 0.4 mg/dL (0.7-1.3); GFR1 > 60 mL/min; GLUCOSE SERUM 89 mg/dL (74-106); POTASSIUM SERUM 3.4 mmol/L (3.5-5.1); SODIUM SERUM 144 mmol/L (136-145)
--- NOTE | 2019-05-14 07:20 | NUR ---
RECEIVED PT FROM CHICKEN CATCHER RN. DROWSY BUT AROUSABLE TO VOICE. NONVERBAL, MAKES NOISES WHEN MOVED OR REPOSITIONED. RESPIRATIONS EQUAL AND UNLABORED ON RA. NO SIGNS OR INDICATIONS OF RESP DISTRESS NOTED. HOB ELEVATED PT POSITIONED ON LEFT SIDE. TUBE FEEDINGS INFUSING AT 40 ML/HR WITH FWF OF 100ML Q4HR. NO RESIDUAL VOLUME NOTED. PT TOLERATING WELL. NO SIGNS OR INDICATIONS OF N/V NOTED. IV PATENT AND INFUSING TO RH. NO REDNESS OR SWELLING NOTED. AIR MATTRESS IN PLACE. WILL CONTINUE TO MONITOR. CALL LIGHT IN REACH. BED IN LOWEST POSITION.
[2019-05-14 07:27] LABS: BASOPHIL % 0.4 % (0-2); PLATELET COUNT 266 x10^3mcL (130-400)
[2019-05-14 07:29] LABS: RED CELL DISTRIBUTION WIDTH 15.1 % (11.5-14.5)
[2019-05-14 08:37] VITALS: BP 109/63
[2019-05-14] MEDS ORDERED: PROMETHAZI6.25 MG/5 PO (09:40)
--- NOTE | 2019-05-14 12:40 | NUR ---
PT SITTING UP IN BED. PT MAKING SOUNDS AND SMILING. IV FLUSHED WELL TO RH. IV ANTIBIOTICS INFUSING ORDERED. RESIDUAL VOLUME CHECKED NO RESIDUAL VOLUME NOTED. GIVEN MEDICATIONS VIA GTUBE. TOLERATED WELL. FLUSHED WITH 30 ML OF STERILE WATER. INCREASED TUBE FEEDINGS TO 50 ML/HR. WILL CONTINUE TO MONITOR. CALL LIGHT IN REACH. BED IN LOWEST POSITION.
[2019-05-14 13:35] VITALS: BP 117/72
--- NOTE | 2019-05-14 14:10 | NUR ---
SPOKE WITH DR. CAAL REGARDING PT. PER DR. CAAL FEEDING RATE OF 55 ML/HR IS HIGH FOR THIS PT. DR. CAAL RECOMMENDS KEEPING PT AT RATE OF 40 ML/HR. CHANGED RATE TO 40 ML/HR.
--- NOTE | 2019-05-14 14:43 | NUR ---
Follow-up Nutrition Assessment Dx: Sepsis, fever Labs: K 3.4L, Ca 7.6L Meds: Ca Carbonate, Lopressor, Miralax, Phenegran, Phenobarbital, Protonix, Risperidal, NSIV, Valium, Valproic acid, Xopenex, Zestril, Zofran, Zosyn Current Nutrition Support: Jevity 1.2 @ goal rate 55 mL/Hr with 100 mL FWF Q4H TF intake 690 mL today I and O: Episodes of small emesis per RN notes x 2 days Residuals TF: 10-30 mL GRV Weights: 55.4 kg Skin: Jean 16, intact Edema: None Last BM: x 1 (05/13) Pt. had episode of vomiting yesterday per provider progress notes. Pt. non-verbal at baseline; unable to answer nutrition related questions. Per RN, pt. tolerating Jevity 1.2 which was running at 40 mL/Hr during visit. No reports of GI distress or further episodes of emesis. RN states she will advance the feeds to 50 mL/Hr, as GRV is minimal and pt. is tolerating well at this time. Estimated Nutritional Needs based on: CBW 55.4 kg, needs unchanged since previous assessment Energy: 0186-8042 kcal (25-30 kcal/kg)-maintenance factors Protein: 66-77 g (1.2-1.4 g/kg)-preserve LBM Fluid: 0318-3288 mL (1 ml/kcal) or per doctor's orders Nutrition Diagnosis 1. Inadequate EN infusion r/t vomiting AEB TF rate not progressed to goal rate of 55 mL/Hr (ongoing) Intervention 1. If pt. continues with emesis with associated TF, consider adding prokinetic agent for gastric motility 3. Consider changing formula to elemental, which may aid in achieving TF tolerance. Vital AF 1.2 @ goal rate 45 mL/Hr with 100 mL FWF Q4H is recommended, which will meet >75% estimated needs. 3. If pt. establish tolerance to current regimen, continue Jevity 1.2 @ goal rate 55 mL/Hr with 100 mL FW Q4 as ordered and as tolerated. Monitor/Evaluate Previous goal: TF/TPN at least 75% of estimated needs (not met) Goal: TF/TPN at least 75% of estimated needs Monitor: TF/TPN intake, Labs, GI function, weights F/U in 2-3 days as high risk (05/16-05/17)
--- NOTE | 2019-05-14 15:03 | NUR ---
SPOKE WITH CHARGE NURSE ADRIANA. PER DR. CAAL KEEP PT ONE MORE DAY WITH FEEDINGS INFUSING AT 40 ML/HR. CALLED RICARDO BUTTERMILK DRIER OPERATOR MADE AWARE.
[2019-05-14 16:23] VITALS: BP 129/82
--- NOTE | 2019-05-14 16:57 | NUR ---
PT SITTING UP IN BED. PT POSITIONED ON LEFT SIDE. RESIDUAL VOLUME CHECKED WAS 50 ML, PUT BACK. GIVEN MEDICATIONS VIA G-TUBE. FLUSHED WELL 30 ML OF STERILE WATER. TOLERATED WELL. CHANGED FEEDING TUBING, INFUSING AT RATE OF 40 ML/HR WITH FWF OF 100 ML Q4HR. WILL CONTINUE TO MONITOR. CALL LIGHT IN REACH. BED IN LOWEST POSITION.
--- NOTE | 2019-05-14 17:11 | NUR ---
SPOKE WITH RICARDO SILO TENDER REGARDING POTASSIUM OF 3.4. PER RICARDO SILO TENDER ORDER POTASSIUM CHLORIDE 20 MEQ VIA GTUBE ONCE. CONFIRMED ORDER TORB. ORDER PUT IN.
--- NOTE | 2019-05-14 18:43 | NUR ---
PT SITTING UP IN BED. NO ACUTE RESP DISTRESS NOTED ON RA. NO SIGNS OR INDICATIONS OF PAIN NOTED. RESIDUAL VOLUME CHECKED WAS 10 ML. PT TOLERATING FEEDINGS WELL. TUBE FEEDINGS INFUSING AT 40 ML/HR WITH FWF OF 100 ML Q4HR. PT POSITIONED ON RIGHT SITE WITH PILLOW BETWEEN LEGS. SCDS IN PLACE AT BEDSIDE. WILL ENDORSE TO DIRECTOR OF ALUMNI RELATIONS RN. CALL LIGHT IN REACH. BED IN LOWEST POSITION.
--- NOTE | 2019-05-14 19:20 | NUR ---
RECEIVED PT IN BED RESTING. NO ACUTE RESPIRATORY DISTRESS NOTED. NO S/S OF PAIN AT THIS TIME. TUBE FEEDING @ 40ML/HR FWF 100 Q4HR. RESIDUAL VOLUME 30ML. SEIZURE PRECAUTION AND AIRMATTRESS IN PLACED. TURN Q2HR. HOB ELEVATED. BLANCHABLE REDNESS TO COCCYX, Z GUARD APPLIED. BED IN LOWEST POSITION,SIDERAIL UP. BED ALARM ON. CALL LIGHT WITHIN REACH. WILL CONTINUE TO MONITOR.
[2019-05-14 20:11] VITALS: BP 141/98
--- NOTE | 2019-05-15 05:03 | NUR ---
PT REMAINED ASLEEP. NO DISTRESS NOTED. NO INDICATION OF PAIN.TURNED Q2HR. BED IN LOWEST POSITION,CALL LIGHT WITHIN REACH. WILL CONTINUE TO MONITOR.
[2019-05-15 05:17] VITALS: BP 133/87
--- NOTE | 2019-05-15 07:25 | NUR ---
CARE ENDORSED TO DAY NURSE ELIANA.
[2019-05-15 08:05] VITALS: BP 137/90
--- NOTE | 2019-05-15 08:20 | NUR ---
RECEIVED PT FROM APPLICATIONS TESTER RN. DROWSY BUT AROUSABLE TO VOICE. NONVERBAL/SMILES/MAKES NOISES. MED SURG. NO SIGNS OR INDICATIONS OF PAIN NOTED. RESPIRATIONS EQUAL AND UNLABORED ON RA. DENIES SOB. IV PATENT AND INFUSING TO RH. NO REDNESS OR SWELLING NOTED. TUBE FEEDINGS INFUSING JEVITY 1.2 AT 40 ML/HR WITH FWF OF 100ML Q4HR. NO RESIDUAL VOLUME NOTED. IV TO RH PATENT AND INFUSING. NO REDNESS OR SWELLING NOTED. SEIZURE PRECAUTIONS IN PLACE. AIR MATTRESS IN PLACE. WILL CONTINUE TO MONITOR. CALL LIGHT IN REACH. BED IN LOWEST POSITION.
--- NOTE | 2019-05-15 09:17 | NUR ---
PT SITTING UP IN BED. PT POSITIONED ON RIGHT SIDE WITH HEELS ELEVATED ON PILLOW. PT AWAKE, ALERT, MAKING SOUNDS, SMILING. RESIDUAL VOLUME CHECKED NOTED 25 ML, REPLACED. GIVEN MEDICATIONS VIA G-TUBE. FLUSHED WITH A TOTAL OF 60 ML OF STERILE WATER. TOLERATED WELL. FEEDINGS INFUSING AT 40 ML/HR. IV PATENT AND INFUSING TO RH. FLUSHED WELL. NO REDNESS OR SWELLING NOTED. WILL CONTINUE TO MONITOR. CALL LIGHT IN REACH. BED IN LOWEST POSITION.
[2019-05-15 10:10] VITALS: BP 117/72
--- NOTE | 2019-05-15 10:14 | NUR ---
SPOKE WITH SHEBA FROM [facility] AND [facility], INFORMED HER PT IS READY FOR DISCHARGE BACK TO [facility] AND [facility], PER SHEBA WILL SPEAK WITH FAMILY SERVICE CASEWORKER AND CALL BACK ONCE TRANSPORT IS ARRANGED.
--- NOTE | 2019-05-15 11:10 | NUR ---
SPOKE WITH LAURY FROM [facility]. PER LAURYR WILL BE HER IN THE NEXT 30 MINUTES TO SENIOR SCIENTIST PT.
--- NOTE | 2019-05-15 12:00 | NUR ---
CAREGIVER TODD PLUMMER AT BEDSIDE. TODD PLUMMER GIVEN DISCHARGE INSTRUCTIONS. TODD INSTRTUCTED TO CONTINUE PT HOME MEDICATION PRESCRIBED. PT INFORMED LAST DOSE OF MEDICATION WERE GIVEN THIS AM AND ARE DOCUMENTED ON PT DISCHARGE INSTRUCTIONS. VERBALIZED UNDERSTANDING. GIVEN PRESCRIPTION FOR PROMETHAZINE AND LEVAQUIN AND INSTRUCTED ON WHEN TO TAKE. PT VERBALIZED UNDERSTANDING. IV TO RH REMOVED CATHETER INTACT. NO REDNESS OR SWELLING NOTED. WOUND PHOTOS TAKEN AND IN CHART. ALL QUESTIONS AND CONCERNS ADDRESSED. PT TAKEN OFF FLOOR VIA WHEELCHAIR WITH CAREGIVER, WALKED DOWN BY HOLLOW CORE DOOR FRAME ASSEMBLER. NO PROBLEMS ENCOUNTERED.
== END 2019-05-15 12:11 | DRG 720 ==
LOC: ED 21:44 → MU 05-11 00:16
PROVIDERS: Emergency Medicine; Family Medicine; Internal Medicine; ADMIT Internal Medicine
DX: A41.9 Sepsis, unspecified organism (principal); J69.0 Pneumonitis due to inhalation of food and vomit; G93.49 Other encephalopathy; E44.0 Moderate protein-calorie malnutrition; K31.84 Gastroparesis; E87.1 Hypo-osmolality and hyponatremia; Z93.1 Gastrostomy status; K52.9 Noninfective gastroenteritis and colitis, unspecified; I10 Essential (primary) hypertension; G40.909 Epilepsy, unspecified, not intractable, without status epilepticus; G80.9 Cerebral palsy, unspecified; Z99.3 Dependence on wheelchair; Z98.2 Presence of cerebrospinal fluid drainage device
CPT/HCPCS: 87046; 87046-59; C9113; G0378; J2543; J2550; J7030

== ENCOUNTER 2019-08-15 10:50 | Emergency (ER) | payer OTHER, MEDICAID ==
[~2019-08-15] VITALS: Ht 162.6 cm; Wt 63.5 kg
[~2019-08-15 10:50] MED LIST changes: +LEVAQUIN750 MG PO; +PROMETHAZI6.25 MG/5 PO; +REG10 PO
[2019-08-15 11:03] VITALS: Ht 162.6 cm; Wt 63.5 kg
[2019-08-15 12:05] LABS: BASOPHIL % 0.6 % (0-2); PLATELET COUNT 189 x10^3mcL (130-400)
[2019-08-15 12:15] LABS: CALCIUM 9.1 mg/dL (8.5-10.1); CARBON DIOXIDE 27.8 mmol/L (21-32); CHLORIDE SERUM 102 mmol/L (98-107); CREATININE SERUM 0.6 mg/dL (0.7-1.3); GFR1 > 60 mL/min; GLUCOSE SERUM 96 mg/dL (74-106); POTASSIUM SERUM 4.2 mmol/L (3.5-5.1); SODIUM SERUM 138 mmol/L (136-145)
[2019-08-15 12:20] LABS: ALBUMIN 3.6 g/dL (3.4-5.0); ALKALINE PHOSPHATASE 71 U/L (46-116); ALT/SGPT 28 U/L (16-63); AST/SGOT 27 U/L (15-37); BILIRUBIN TOTAL 0.1 mg/dL (0.20-1.00); MAGNESIUM 2.1 mg/dL (1.8-2.4)
[2019-08-15 12:30] LABS: TOTAL PROTEIN, SERUM 9.2 g/dL (6.4-8.2)
[2019-08-15 13:42] LABS: microscopic required? NO
[2019-08-15 13:54] LABS: UA SPECIFIC GRAVITY <=1.005 (1.005-1.035); urine erythrocyte NEGATIVE (NEGATIVE)
[2019-08-15 14:41] VITALS: BP 142/99
== END 2019-08-15 14:41 | disposition home or self-care (01) ==
LOC: ED 10:50
PROVIDERS: Emergency Medicine
DX: G40.909 Epilepsy, unspecified, not intractable, without status epilepticus (principal); F82 Specific developmental disorder of motor function; J44.9 Chronic obstructive pulmonary disease, unspecified; I10 Essential (primary) hypertension; K21.9 Gastro-esophageal reflux disease without esophagitis; E46 Unspecified protein-calorie malnutrition
CPT/HCPCS: 36415; J7030; Q0092

== ENCOUNTER 2019-11-14 07:23 | Inpatient (IN) | payer OTHER, MEDICAID ==
[~2019-11-14] VITALS: Ht 152.4 cm; Wt 54.0 kg
[~2019-11-14 07:23] MED LIST changes: +LEVOFLOXACIN500 M1 GT; +TAMIFLU75 MG PO
[2019-11-14 07:55] LABS: BASOPHIL % 0.4 % (0-2); PLATELET COUNT 172 x10^3mcL (130-400); RED CELL DISTRIBUTION WIDTH 15.1 % (11.5-14.5)
[2019-11-14 08:51] LABS: microscopic required? NO
[2019-11-14 09:21] LABS: ALKALINE PHOSPHATASE 73 U/L (46-116); ALT/SGPT 26 U/L (16-63); AST/SGOT 18 U/L (15-37); BILIRUBIN TOTAL 0.29 mg/dL (0.20-1.00); CALCIUM 8.8 mg/dL (8.5-10.1); CARBON DIOXIDE 27.8 mmol/L (21-32); CHLORIDE SERUM 100 mmol/L (98-107); CREATININE SERUM 0.5 mg/dL (0.7-1.3); GFR1 > 60 mL/min; GLUCOSE SERUM 118 mg/dL (74-106); POTASSIUM SERUM 3.9 mmol/L (3.5-5.1); SODIUM SERUM 134 mmol/L (136-145)
[2019-11-14 09:24] LABS: ALBUMIN 3.1 g/dL (3.4-5.0); TOTAL PROTEIN, SERUM 8.8 g/dL (6.4-8.2)
[2019-11-14 09:26] LABS: urine erythrocyte NEGATIVE (NEGATIVE)
[2019-11-14] MEDS ORDERED: [UNRECOGNIZED DRUG - OTHER] PO (09:46)
[2019-11-14 11:15] VITALS: BP 142/96
[2019-11-14 12:13] VITALS: BP 142/96
[2019-11-14 17:00] VITALS: BP 108/64
[2019-11-14 20:22] VITALS: BP 117/74
[2019-11-15 05:18] VITALS: BP 126/77
[2019-11-15 09:18] VITALS: Ht 152.4 cm; Wt 54.0 kg
[2019-11-15 09:33] VITALS: BP 143/105
[2019-11-15 09:50] LABS: BASOPHIL % 0.2 % (0-2); PLATELET COUNT 177 x10^3mcL (130-400)
[2019-11-15 09:58] LABS: RED CELL DISTRIBUTION WIDTH 15.4 % (11.5-14.5)
== END 2019-11-15 13:35 | DRG 140 ==
LOC: ED 07:23 → MU 09:31 → ED 09:31 → DU 10:29
PROVIDERS: Emergency Medicine; ADMIT Family Medicine
DX: J44.1 Chronic obstructive pulmonary disease with (acute) exacerbation (principal); E44.0 Moderate protein-calorie malnutrition; Z93.1 Gastrostomy status; K21.9 Gastro-esophageal reflux disease without esophagitis; R62.50 Unspecified lack of expected normal physiological development in childhood; J98.11 Atelectasis; G80.9 Cerebral palsy, unspecified; G40.909 Epilepsy, unspecified, not intractable, without status epilepticus; Z98.2 Presence of cerebrospinal fluid drainage device; Z68.24 Body mass index [BMI] 24.0-24.9, adult; Z79.51 Long term (current) use of inhaled steroids; Z74.01 Bed confinement status
CPT/HCPCS: G0378; J0696; J7060; Q0092

== ENCOUNTER 2020-03-28 11:57 | Emergency (ER) | payer OTHER, MEDICAID ==
[~2020-03-28] VITALS: Ht 152.4 cm; Wt 61.2 kg
[~2020-03-28 11:57] MED LIST changes: -ALBUTEROL SULFAT0.51 NEB; +BANOPHEN25 MG; -IPRATROPIUM BR2.5 ML IH; +[UNRECOGNIZED DRUG - OTHER] PO
[2020-03-28 12:02] VITALS: BP 113/71; Ht 152.4 cm; Wt 61.2 kg
[2020-03-31] MEDS ORDERED: LEVAQUIN750 MG PO (11:41)
[2020-03-31] MEDS ORDERED: IPRATROPIUM BR2.5 ML IH (12:16)
[2020-03-31] MEDS ORDERED: ALBUTEROL SULFAT0.51 NEB (12:16)
[2020-03-31] MEDS ORDERED: CALCIUM 600 +1 EAC1 GT (12:17)
== END 2020-03-28 15:24 | disposition left against medical advice (07) ==
LOC: ED 11:57
DX: Z53.21 Procedure and treatment not carried out due to patient leaving prior to being seen by health care provider (principal)

== ENCOUNTER 2020-06-23 19:56 | Inpatient (IN) | payer OTHER, MEDICAID ==
[~2020-06-23] VITALS: Ht 167.6 cm; Wt 77.1 kg
[~2020-06-23 19:56] MED LIST changes: +ALBUTEROL SULFAT0.51 NEB; +ELA25 GT; +IND20 GT; +IPRATROPIUM BR2.5 ML IH; +LAC30L GT; +PHENOBARBI20 MG/5 ML GT; +PREVACID15 M2 PO; +REGLAN5 M1 PO; +RIS1 GT; +VAL5 PO; +[UNRECOGNIZED DRUG - CODE] GT
[2020-06-23 20:02] VITALS: Ht 167.6 cm; Wt 77.1 kg
--- NOTE | 2020-06-23 20:51 | NUR ---
PT PRESENTS TO ED FOR DISLODGE J-TUBE. PER [facility] FACILITY PT IS FROM PULLED IT OUT DUE TO PT HAVING DIFFICULTIES BREATHING. PT IS APHASIC DUE TO CP. RESPONSES TO TACTILE STIMULATION. PT HAS SPONTANEAOUS EYE OPENING. PT HAS DIMINISHED BILATERAL LUNG SOUNDS WITH REGULAR EFFORT AND SYMETRIC CHEST EXPANSION. NO DISCHARGE OR REDNESS NOTED AROUND J-TUBE SITE. PT HAS MILD CONTRACTIONS TO LOWER EXTREMITES. WILL CONTINUE TO MONITOR PT.
--- NOTE | 2020-06-23 22:07 | NUR ---
PT TRANSFERED TO [facility]
--- NOTE | 2020-06-23 22:30 | NUR ---
FIRST ENCOUNTER WITH PT. WHO TRANSFERRED FROM ANOTHER ROOM TO ROOM7. PT. NON VERVAL HE WAS PUT ON MONITOR.IVF NS INITIATED.
[2020-06-23 22:36] LABS: microscopic required? YES; urine erythrocyte NEGATIVE (NEGATIVE)
--- NOTE | 2020-06-23 22:40 | NUR ---
PLANNING AND ANALYSIS MANAGER AT BEDSIDE.
--- NOTE | 2020-06-24 00:17 | NUR ---
LAB CALLED COVID ( ERIN ) = NEGATIVE.
[2020-06-24 01:12] LABS: BASOPHIL % 1.6 % (0-2); PLATELET COUNT 190 x10^3mcL (130-400); RED CELL DISTRIBUTION WIDTH 14.7 % (11.5-14.5)
[2020-06-24 01:39] LABS: CALCIUM 8.5 mg/dL (8.5-10.1); CARBON DIOXIDE 29.9 mmol/L (21-32); CHLORIDE SERUM 113 mmol/L (98-107); CREATININE SERUM 0.6 mg/dL (0.7-1.3); GFR1 > 60 mL/min; GLUCOSE SERUM 98 mg/dL (74-106); POTASSIUM SERUM 3.6 mmol/L (3.5-5.1); SODIUM SERUM 151 mmol/L (136-145)
[2020-06-24 01:43] LABS: ALKALINE PHOSPHATASE 64 U/L (46-116); ALT/SGPT 25 U/L (16-63); AST/SGOT 21 U/L (15-37); BILIRUBIN TOTAL 0.3 mg/dL (0.20-1.00)
[2020-06-24 01:44] LABS: ALBUMIN 3.2 g/dL (3.4-5.0); TOTAL PROTEIN, SERUM 8.3 g/dL (6.4-8.2)
[2020-06-24 02:38] VITALS: BP 139/94
--- NOTE | 2020-06-24 03:17 | NUR ---
PT ARRIVED TO UNIT AT 02:05 VIA RBURNHAM ACCOMPANIED BY BANDER AND CELLOPHANER MACHINE HELPER. PT REQUIRED MAX ASSIST FOR TRASNFER FRO BED TO [facility]. PT IS ABLE TO ASSIST WITH TURNING. PT IS AWAKE AND RESPONSIVE TO VERBAL AND TACTILE STIMULI, BUT NON VERBAL. RESPIRATIONS EVEN, UNLABORED. COARSE CRACKLES IDENTIFIED THROUGHOUT. 2L NC, sPO2 97%, NO SOB NOTED. NO CHEST PAIN OR DIZZINESS/LIGHTHEADEDNES NOTED. PERIPHERAL PULSES PALPABLE, NO EDEMA NOTED. PT IS INCONTINENT TO BOWEL AND BLADDER. DIAPER SOILED WITH URINE, PERICARE PROVIDED. URINE YWLLO, NO FOUL ODOR. AB SOFT AND FLAT. JTUBE EXIT SITE IDENTIFIED WITH SMALL AMOUNT OF DRIED SEROUS OUTPUT, OMA. NON VERBAL PAIN INDICATORS ABSENT. IV R PINKY PATENT, NO COMPLICATIONS TO SITE. BED IN LOWEST POSITION, SIDE RAILS X 2, CALL LIGHT WITHIN REACH.
[2020-06-24 04:28] VITALS: BP 112/67
--- NOTE | 2020-06-24 05:58 | NUR ---
PT LYING IN BED SLEEPING SUPINE. REPSIRATIONS EVEN UNLABORED, 2L NC, NO SOB NOTED. NON VERBAL PAIN INDICATORS ABSENT AT THIS TIME, NO C/O PAIN SURING SHIFT. IV Parth GUZMAN, PATENT RUNNING D51/2NS @80ML/HR, NO COMPLICATIONS TO SITE. ALL NEESD MET. BED IN LOWEST POSITION, SIDE RAILS X 2, CALL LLIGHT WITHIN REACH
[2020-06-24 06:32] LABS: BASOPHIL % 0.5 % (0-2); PLATELET COUNT 196 x10^3mcL (130-400)
--- NOTE | 2020-06-24 07:16 | NUR ---
RECEIVED PT FROM COTTON PRESSER NURSE. PT IN BED SLEEPING, AROUSABLE, RESP E/U ON 1L NC. NO ACUTE DISTRESS NOTED AT THIS TIME. IV TO R PINKY W/ NO SIGNS OF INFILTRATION, IVF INFUSING WELL. BED IN LOWEST POSITION AND PADDED SIDE RAILS UP X2. WILL CONTINUE TO MONITOR.
[2020-06-24 07:25] LABS: CALCIUM 8.4 mg/dL (8.5-10.1); CARBON DIOXIDE 31.4 mmol/L (21-32); CHLORIDE SERUM 113 mmol/L (98-107); CREATININE SERUM 0.5 mg/dL (0.7-1.3); GFR1 > 60 mL/min; GLUCOSE SERUM 95 mg/dL (74-106); MAGNESIUM 2.2 mg/dL (1.8-2.4); POTASSIUM SERUM 4.1 mmol/L (3.5-5.1); SODIUM SERUM 152 mmol/L (136-145)
[2020-06-24 07:58] VITALS: BP 116/82
[2020-06-24 12:14] VITALS: BP 133/89
--- NOTE | 2020-06-24 12:35 | NUR ---
J-TUBE INSERTED AT BEDSIDE AT THIS TIME BY DR. CAAL. PER DR. CAAL, OK TO USE J-TUBE FOR MEDS AND HAVE PT STARTED ON TUBE FEEDING. J-TUBE TO LUQ OF ABD, SPONGE DRAIN DRESSING APPLIED SECURED W/ TAPE AND ABD BINDER APPLIED. WILL CONTINUE TO MONITOR.
[2020-06-24 16:05] VITALS: BP 108/70
--- NOTE | 2020-06-24 17:45 | NUR ---
PT RESTING IN BED, AWAKE/ALERT, RESP E/U ON 1L NC. NO ACUTE DISTRESS NOTED. TUBE FEEDING STARTED AT THIS TIME. JEVITY 1.2 INFUSING AT INITIAL RATE OF 30 ML/HR W/ 100 ML FWF Q6H, INFUSING WELL. J-TUBE SECURED/INTACT W/ ABD BINDER IN PLACE. BED IN LOWEST POSITION, PADDED SIDE RAILS UP X2, BILAT HAND MITTENS IN PLACE. WILL CONTINUE TO MONITOR.
[2020-06-24 17:59] LABS: CALCIUM 8.1 mg/dL (8.5-10.1); CARBON DIOXIDE 28.5 mmol/L (21-32); CHLORIDE SERUM 110 mmol/L (98-107); CREATININE SERUM 0.5 mg/dL (0.7-1.3); GFR1 > 60 mL/min; GLUCOSE SERUM 201 mg/dL (74-106); POTASSIUM SERUM 3.4 mmol/L (3.5-5.1); SODIUM SERUM 145 mmol/L (136-145)
[2020-06-24 19:31] VITALS: BP 106/58
--- NOTE | 2020-06-24 20:00 | NUR ---
Received pt in bed, condition stable No signs of distress noted G-tube feeding ongoing @ 30cc/hr, tolerating No signs of pain or discomfort noted seizure precaution in place
[2020-06-25 04:46] VITALS: BP 120/88
[2020-06-25 06:33] LABS: BASOPHIL % 0.4 % (0-2); PLATELET COUNT 167 x10^3mcL (130-400)
--- NOTE | 2020-06-25 06:50 | NUR ---
Pt nonverbal, slept overnight All due care rendered, no signs of distress No seizure overnight On Jevity 1.2 @ 40 tolerating feeding, no residual Incontinence of urine, skin care maintained Dr. Monteiro made aware of low potassium of 3.4 and D51/2NS @ 150 cc/hr, per MD keep fluid at 150 and watch potassium level
[2020-06-25 07:13] LABS: RED CELL DISTRIBUTION WIDTH 14.6 % (11.5-14.5)
[2020-06-25 07:18] LABS: CALCIUM 7.9 mg/dL (8.5-10.1); CARBON DIOXIDE 30.1 mmol/L (21-32); CHLORIDE SERUM 107 mmol/L (98-107); CREATININE SERUM 0.5 mg/dL (0.7-1.3); GFR1 > 60 mL/min; GLUCOSE SERUM 92 mg/dL (74-106); MAGNESIUM 2.1 mg/dL (1.8-2.4); PHOSPHOROUS 2.7 mg/dL (2.5-4.9); POTASSIUM SERUM 3.1 mmol/L (3.5-5.1); SODIUM SERUM 144 mmol/L (136-145)
--- NOTE | 2020-06-25 07:18 | NUR ---
RECEIVED PT FROM LIFE SKILLS INSTRUCTOR NURSE. PT IN BED SLEEPING, AROUSABLE, RESP E/U ON RA. NO ACUTE DISTRESS NOTED. IV TO RH W/ NO SIGNS OF INFILTRATION, IVF INFUSING WELL. J-TUBE TO LUQ OF ABD SECURED/INTACT W/ ABD BINDER. RECEIVING JEVITY 1.2 AT 40 ML/HR, NO RESIDUAL NOTED AT THIS TIME, INFUSING WELL. BED IN LOWEST POSITION, BILAT HAND MITTENS IN PLACE, PADDED SIDE RAILS UP X2. WILL CONTINUE TO MONITOR.
[2020-06-25 08:17] VITALS: BP 129/78
[2020-06-25 12:00] VITALS: BP 141/97
--- NOTE | 2020-06-25 12:32 | NUR ---
PT RESTING IN BED, AWAKE/ALERT, RESP E/U ON 1L NC. NO ACUTE DISTRESS NOTED. NO RESIDUAL NOTED TO J-TUBE AT THIS TIME. TUBE FEEDING RATE INCREASED TO 45 ML/HR, INFUSING WELL. WILL CONTINUE TO MONITOR.
[2020-06-25 16:24] VITALS: BP 128/89
--- NOTE | 2020-06-25 17:36 | NUR ---
NO GASTRIC RESIDUAL NOTED AT THIS TIME. INCREASED TUBE FEEDING RATE TO 50 ML/HR, INFUSING WELL. WILL CONTINUE TO MONITOR.
--- NOTE | 2020-06-25 19:32 | NUR ---
PT. REPORT RECIEVED FROM DAY SHIFT NURSE, PT. RESTING IN BED, EASILY AROUSABLE, NON VERBAL, BUT ABLE TO RESPOND TO VERBAL/TACTILE STIMULI. NO FACIAL DROOP NOTED. RR EVEN AND UNLABORED ON 1L NC, CHEST RISE SYMT. LUQ J TUBE DRESSING DCI, ABD BINDER IN PLACE, JEVITY 1.2 TUBE FEEDING @50 ML/HR. RESIDUAL CHECK 0 ML AT THIS MOMENT, R PINKY IV INTACT AND WNL. SEIZURE PRECUATION IN PLACE, BED IN LOWEST POSITION, CALL LIGHT WITHIN REACH, WILL CONTINUE TO MONITOR.
[2020-06-25 19:53] VITALS: BP 125/94
--- NOTE | 2020-06-26 01:45 | NUR ---
PT. RESTING IN BED, EASILY AROUSABLE, NON VERBAL BUT ABLE TO RESPOND TO VERBAL/ TACTILE STIMULI. NO ACUTE CHANGE/ DISTRESS NOTED. RR EVEN AND UNLABORED ON 1L NC, CHEST RISE SYMT. HOB ELEVATED. BED IN LOWEST POSITION, CALL LIGHT WITHIN REACH, BED ALARM ACTIVATED, SEIZURE PRECUATION IN PLACE, ASPIRATION PRECUATION IN PLACE. WILL CONT. TO MONITOR.
[2020-06-26 05:14] VITALS: BP 124/92
--- NOTE | 2020-06-26 06:50 | NUR ---
PT. RESTING IN BED W/ EYES CLOSED, RR EVEN AND UNLABORED ON 1L NC, CHEST RISE SYMT. ABD LUQ SURGICAL DRESSING DCI, ABD BINDER IN PLACE, R PINKY IV INTACT AND WNL, BED ALARM ACTIVATED, SEIZURE PRECUATION IN PLACE, ASPIRATION PRECUATION IN PLACE, BED IN LOWEST POSITON, WILL REPORT TO UPCOMMING NURSE.
[2020-06-26 06:51] LABS: BASOPHIL % 0.5 % (0-2); PLATELET COUNT 175 x10^3mcL (130-400)
[2020-06-26 06:55] LABS: CALCIUM 8.9 mg/dL (8.5-10.1); CARBON DIOXIDE 30.4 mmol/L (21-32); CHLORIDE SERUM 110 mmol/L (98-107); CREATININE SERUM 0.5 mg/dL (0.7-1.3); GFR1 > 60 mL/min; GLUCOSE SERUM 82 mg/dL (74-106); MAGNESIUM 2.3 mg/dL (1.8-2.4); PHOSPHOROUS 2.8 mg/dL (2.5-4.9); POTASSIUM SERUM 3.6 mmol/L (3.5-5.1); SODIUM SERUM 140 mmol/L (136-145)
[2020-06-26 06:59] LABS: RED CELL DISTRIBUTION WIDTH 14.8 % (11.5-14.5)
--- NOTE | 2020-06-26 07:00 | NUR ---
RECEIVED PT FROM NIGHT RN. PT RESTING IN BED W EYES CLOSED BUT EASILY AROUSABLE. RESPONSIVE TO VERBAL STIMULI. SEIZURE PRECAUTIONS IN PLACE. J TUBE IN PLACE. TUBE FEEDING ON HOLD FOR POSSIBLE G TUBE PLACEMENT PER REPORT. ABD BINDER IN PLACE. MITTES BILAT IN PLACE. IV SITE TO Parth LERNER. NO ACUTE DISTRESS NOTED. SAFETY PRECAUTIONS IN PLACE
[2020-06-26 08:38] VITALS: BP 115/85
[2020-06-26 11:31] VITALS: BP 115/85
--- NOTE | 2020-06-26 13:01 | NUR ---
Initial Nutrition Assessment: Mukesh Larson 246B Dx: prolapse of J tube PMHx: HTN, COPD, Chronic lung disease, contractures, dysphagia, malnutrition mental retardation PSHx: J tube placement Labs: (06/26/20) B/C: 2.0/0.5L, alb: 3.2 Meds: kcl 20 meq, reglan, lactulose qd, phenobartial, Lopressor, lisinopril, risperdal Diet: NPO, Tube feeding Jevity 1.2 at 30 cc/hr which provides 720 cc/864 kcal/34 g protein/581 cc free water. H20 flush 100 cc q4 hours which provides 600 cc qd. Ht: 66"/167.64cm Wt:77.11kg/169.62# BMI: 27.4 kg/m2 Bed scale: 132#/59.5kg IBW: 142# %IBW: 119% UBW: unknown Age: 19 y/o M Food Allergies: NKFA Skin condition: skin intact, Jean: 14 Edema: no edema noted Last BM: 06/25/20 Per H&P 19-year-old paraplegic patient who is in special boarding care and he pulled out his j-tube, admitted also for SIRS no source of infection, He had a history of recurrent aspiration pneumonia and Dr. Jain had converted this G-tube to a jejunostomy tube last month. RD Note: visited patient, bed scale weight significantly lower than admission weight, tube feeding in place Problem with: N/V/D/C: vomiting noted before admission to hospital, no current N/V/D/C Problems with: Chewing: Swallowing: n/a Current appetite: unknown Recent wt change: unknown %wt change: n/a Vitamin/Supplement use: unknown Special diet at home: tube feeding given at boarding care Physical activity: bedbound Nutrition education given (specify specific nutrition education and handout given): n/a Food-drug interactions? Education given? n/a Estimated Nutritional Needs Based on ideal body weight 142#/64.5kg Energy: 4048-8395 kcal/day (25-30 kcal/kg) Protein: 77 g/day (1.2 g/kg) Fluid: 1 mL/kcal or per MD order Nutrition Diagnosis: 1. Inadequate calorie and protein intakes r/t tube feeding rate aeb current rate not meeting patient's estimated nutritional needs. Intervention 1. Increase Jevity 1.2 to 60 cc/hr to provide 1440 cc/1728 kcal/80 g protein/1162 cc free water qd. Monitor/Evaluate Goal: TF meeting patient's estimated nutritional needs Monitor: TF tolerance, Labs, GI function F/U HR in 2-3 days (06/28-)
--- NOTE | 2020-06-26 13:03 | NUR ---
1. Increase Jevity 1.2 to 60 cc/hr to provide 1440 cc/1728 kcal/80 g protein/1162 cc free water qd. Called , awaiting answer
--- NOTE | 2020-06-26 16:02 | NUR ---
TUBE FEEDING RESUMED ORDERED.
[2020-06-26 16:26] VITALS: BP 122/78
--- NOTE | 2020-06-26 19:04 | NUR ---
NO SIGNIFICANT CHANGES NOTED. IV TO R THUMB TKO. TUBE FEEDING FUNCTIONING PROPERLY. TUBE FEEDING RATE 50 ML/HR ORDERED. NO ACUTE DISTRESS NOTED. WILL ENDORSE CARE TO NEXT SHIT
--- NOTE | 2020-06-26 21:19 | NUR ---
Pt received in bed, sleeping Condition stable No signs of distress noted Calm and cooperative Seizure precaution in place
[2020-06-26 21:35] VITALS: BP 139/99
--- NOTE | 2020-06-27 05:07 | NUR ---
Slept overnight, condition stable No signs of distress noted Incontinence care provided Skin care maintained Seizure precautions in place, no seizure activity this shift All due care rendered No signs of pain or discomfort noted
[2020-06-27 05:33] VITALS: BP 104/54
--- NOTE | 2020-06-27 07:35 | NUR ---
RECEIVED PATIENT FROM PM NURSE, NON VERBAL BUT AWAKE, NO S/X OF PAIN AT THIS TIME, LUNG SOUNDS CLEAR ON RA, PARAPALEGIC BED BOUNDS, IV IN RIGHT PINKY PATENT, LUQ J TUBE DRESSING DIT, RUNNING JEVITY 1.2 @ 50ML/HR, BOWEL SOUNDS ACTIVE IN ALL QUADS, LAST BM 06/26, SKIN INTACT, PEDAL PULSES EQUAL AND MODERATE BILATERALLY, NO EDEMA NOTED, INCONTINENT OF BOWEL AND BLADDER, PATIENT APPEARS CALM AT THIS TIME
[2020-06-27 07:54] LABS: PLATELET COUNT 169 x10^3mcL (130-400)
[2020-06-27 07:56] LABS: BASOPHIL % 2.5 % (0-2); RED CELL DISTRIBUTION WIDTH 14.6 % (11.5-14.5)
[2020-06-27 08:06] LABS: CALCIUM 9.1 mg/dL (8.5-10.1); CARBON DIOXIDE 26.7 mmol/L (21-32); CHLORIDE SERUM 105 mmol/L (98-107); CREATININE SERUM 0.5 mg/dL (0.7-1.3); GFR1 > 60 mL/min; GLUCOSE SERUM 94 mg/dL (74-106); SODIUM SERUM 135 mmol/L (136-145)
[2020-06-27 09:06] VITALS: BP 128/92
--- NOTE | 2020-06-27 12:00 | NUR ---
PATIENT PULLED OUT IV IN R JAIDA, CATHETER INTACT, ORDER OBTAINED FROM HOME HEALTH LPN TO DC IV AT THIS TIME
[2020-06-27 13:18] VITALS: BP 119/78
[2020-06-27 16:56] VITALS: BP 125/102
--- NOTE | 2020-06-27 17:30 | NUR ---
PATIENT SEEN AND EXAMINED BY DR. CAAL, ADVISED THAT PATIENT CAN BE DC HOME AT THIS TIME, MESSAGE RELAYED TO CARDIAC NURSE
--- NOTE | 2020-06-27 18:17 | NUR ---
PATIENT RESTING COMFORTABLY IN BED, NO S/SX OF PAIN OR DISCOMFORT AT THIS TIME, WILL ENDORSE CARE TO PM NURSE
--- NOTE | 2020-06-27 19:30 | NUR ---
Pt. receieved from day shift for continuation of care. Pt. is non-verbal, awake, responses to verbal and tactile stimuli, no s/o acute dsitress or SOB on RA. Pt. MS, no s/o chest pain or pain at this time. J tube placed, running Jevity 1.2 @ 50 cc/hr, tolerating well. Pt. has no s/o acute distress at this time, will cont. to monitor.
[2020-06-27 20:29] VITALS: BP 136/90
--- NOTE | 2020-06-28 01:00 | NUR ---
No acute changes, j-tube feeding running at 50cc/hr, no acute changes, will cont. to monitor and endorse care to next shift RN.
[2020-06-28 05:37] VITALS: BP 127/96
--- NOTE | 2020-06-28 06:32 | NUR ---
No acute changes throughout shift, jtube dressing in tact and patent, will cont. to monitor and endorse care to next shift rn
[2020-06-28 07:25] VITALS: BP 143/93
--- NOTE | 2020-06-28 08:23 | NUR ---
RECEIVED PATIENT FROM NATIONAL INSURANCE OFFICER RN. PATIENT IS AWAKE AND ALERT, NONVERBAL, RESPONSE TO VERBAL/TACTILE STIMULI. LUNG SOUNDS RHONCHI BILATERALLY. NO CHEST PAIN OR SOB NOTED. PERIPHERAL PULSES PRESENT BILATERALLY AND NO EDEMA PRESENT. LUQ J-TUBE CDI. PATIENT IS INCONTINENT. GENERALIZED WEAKENSS, PARAPLEGIC, BEDBOUND. NO IV ACCESS, MD AWARE. CALL LIGHT AT BEDSIDE. BED ALARM ON, SAFETY PRECAUTIONS ARE IN PLACE. PLAN OF CARE IS POSSIBLE TRANSFER.
[2020-06-28 11:56] VITALS: BP 116/76
[2020-06-28 12:33] VITALS: BP 143/93
--- NOTE | 2020-06-28 13:07 | NUR ---
PATIENT IS PICKED UP BY [facility]. ALL QUESTIONS AND CONCERNS HAVE BEEN ADDRESSED FOR TRANSPORT TEAM.
== END 2020-06-28 13:05 | DRG 862 ==
LOC: ED 19:56 → MU 06-24 00:08
PROVIDERS: Emergency Medicine; Family Medicine; Internal Medicine Cardiovascular Disease; ADMIT Internal Medicine; ATTEND Internal Medicine
DX: T85.898A Other specified complication of other internal prosthetic devices, implants and grafts, initial encounter (principal); E87.0 Hyperosmolality and hypernatremia; R56.9 Unspecified convulsions; E44.1 Mild protein-calorie malnutrition; R65.10 Systemic inflammatory response syndrome (SIRS) of non-infectious origin without acute organ dysfunction; Y73.8 Miscellaneous gastroenterology and urology devices associated with adverse incidents, not elsewhere classified; K21.9 Gastro-esophageal reflux disease without esophagitis; F79 Unspecified intellectual disabilities; I10 Essential (primary) hypertension; Z79.899 Other long term (current) drug therapy; Z79.891 Long term (current) use of opiate analgesic; Z93.4 Other artificial openings of gastrointestinal tract status; Z87.01 Personal history of pneumonia (recurrent); Z79.01 Long term (current) use of anticoagulants; Z68.27 Body mass index [BMI] 27.0-27.9, adult; Z20.828 Contact with and (suspected) exposure to other viral communicable diseases
CPT/HCPCS: 36600; G0378; J2270; J3480; J7030; J7042; J7626; J7644; J8597; Q0092; Q9967

== ENCOUNTER 2020-07-22 16:22 | Inpatient (IN) | payer OTHER, MEDICAID ==
[~2020-07-22] VITALS: Ht 160 cm; Wt 60.5 kg
[2020-07-22 16:31] VITALS: Ht 160 cm; Wt 60.5 kg
[2020-07-22 18:21] LABS: BASOPHIL % 0.6 % (0-2); PLATELET COUNT 193 x10^3mcL (130-400)
[2020-07-22 18:23] LABS: RED CELL DISTRIBUTION WIDTH 14.6 % (11.5-14.5)
[2020-07-22 18:30] LABS: CALCIUM 8.9 mg/dL (8.5-10.1); CARBON DIOXIDE 28.6 mmol/L (21-32); CHLORIDE SERUM 105 mmol/L (98-107); CREATININE SERUM 0.6 mg/dL (0.7-1.3); GFR1 > 60 mL/min; GLUCOSE SERUM 86 mg/dL (74-106); POTASSIUM SERUM 4.9 mmol/L (3.5-5.1); SODIUM SERUM 141 mmol/L (136-145)
[2020-07-22 18:35] LABS: ALKALINE PHOSPHATASE 73 U/L (46-116); ALT/SGPT 21 U/L (16-63); AST/SGOT 27 U/L (15-37); BILIRUBIN TOTAL 0.12 mg/dL (0.20-1.00); C REACTIVE PROTEIN 4.4 mg/dL (<=0.9); LACTIC DEHYDROGENASE (LDH) 255 U/L (100-190); TOTAL PROTEIN, SERUM 8.7 g/dL (6.4-8.2)
[2020-07-22 19:44] LABS: microscopic required? YES; urine erythrocyte NEGATIVE (NEGATIVE)
[2020-07-22 21:05] VITALS: BP 114/81
[2020-07-22 21:10] LABS: T3 TOTAL 1.11 ng/mL
[2020-07-22 21:19] LABS: FREE T4 0.7 ng/dL (0.76-1.46); FREE THYROXINE INDEX 1.8 ug/dL (1.4-4.5); T4(THYROXINE) 5.1 ug/dL (4.7-13.3)
[2020-07-22 21:34] LABS: MAGNESIUM 2.3 mg/dL (1.8-2.4); PHOSPHOROUS 4.2 mg/dL (2.5-4.9)
[2020-07-23 00:28] VITALS: BP 99/55
[2020-07-23 05:49] VITALS: BP 97/48
[2020-07-23 07:35] LABS: CALCIUM 8.1 mg/dL (8.5-10.1); CARBON DIOXIDE 28.3 mmol/L (21-32); CHLORIDE SERUM 107 mmol/L (98-107); CREATININE SERUM 0.5 mg/dL (0.7-1.3); GFR1 > 60 mL/min; GLUCOSE SERUM 75 mg/dL (74-106); PHOSPHOROUS 3.5 mg/dL (2.5-4.9); POTASSIUM SERUM 3.6 mmol/L (3.5-5.1); SODIUM SERUM 143 mmol/L (136-145)
[2020-07-23 07:51] LABS: BASOPHIL % 0.6 % (0-2)
[2020-07-23 07:52] LABS: PLATELET COUNT 171 x10^3mcL (130-400)
[2020-07-23 08:30] VITALS: BP 103/61
[2020-07-23 12:53] VITALS: BP 124/77
[2020-07-23 16:04] VITALS: BP 100/62
[2020-07-23 20:17] VITALS: BP 139/81
[2020-07-24 04:49] VITALS: BP 110/92
[2020-07-24 08:37] VITALS: BP 144/98
[2020-07-24 09:22] LABS: CARBON DIOXIDE 30.1 mmol/L (21-32); CHLORIDE SERUM 102 mmol/L (98-107); CREATININE SERUM 0.6 mg/dL (0.7-1.3); GFR1 > 60 mL/min; GLUCOSE SERUM 107 mg/dL (74-106); MAGNESIUM 1.9 mg/dL (1.8-2.4); POTASSIUM SERUM 3.5 mmol/L (3.5-5.1); SODIUM SERUM 140 mmol/L (136-145)
[2020-07-24 09:30] LABS: PLATELET COUNT 210 x10^3mcL (130-400)
[2020-07-24 09:36] LABS: BASOPHIL % 0 % (0-2)
[2020-07-24 11:53] VITALS: BP 142/110
[2020-07-24 16:03] VITALS: BP 151/111
[2020-07-24 20:14] VITALS: BP 117/78
[2020-07-25 06:00] VITALS: BP 135/95
[2020-07-25 07:17] LABS: BASOPHIL % 0.1 % (0-2); PLATELET COUNT 190 x10^3mcL (130-400); RED CELL DISTRIBUTION WIDTH 14.4 % (11.5-14.5)
[2020-07-25 07:26] LABS: CALCIUM 8.9 mg/dL (8.5-10.1); CARBON DIOXIDE 32.9 mmol/L (21-32); CHLORIDE SERUM 102 mmol/L (98-107); CREATININE SERUM 1.3 mg/dL (0.7-1.3); GFR1 > 60 mL/min; GLUCOSE SERUM 155 mg/dL (74-106); SODIUM SERUM 142 mmol/L (136-145)
[2020-07-25 07:30] LABS: POTASSIUM SERUM 2.7 mmol/L (3.5-5.1)
[2020-07-25 08:52] VITALS: BP 129/75
[2020-07-25] MEDS ORDERED: VAL5 JT (12:36)
[2020-07-25] MEDS ORDERED: LACTULOSE10 GM/153 JT (12:37)
[2020-07-25] MEDS ORDERED: PREVACID15 M2 JT (12:38)
[2020-07-25] MEDS ORDERED: LOCALNESIUM1 TAB PO (12:39)
[2020-07-25] MEDS ORDERED: POLYETHYLENE GL1 PO1 PO (12:40)
[2020-07-25] MEDS ORDERED: BENADRYL ALLERG25 M1 JT (12:40)
[2020-07-25] MEDS ORDERED: RISPERDAL1 M1 JT (12:42)
[2020-07-25] MEDS ORDERED: PROPRANOLOL HCL20 MG JT (12:42)
[2020-07-25] MEDS ORDERED: DEPL JT (12:43)
[2020-07-25] MEDS ORDERED: TRIHEXYPHENIDYL2 M1 JT (12:43)
[2020-07-25 12:45] VITALS: BP 125/81
[2020-07-25 16:30] VITALS: BP 104/55
[2020-07-25 20:50] VITALS: BP 148/103
[2020-07-26 04:58] VITALS: BP 122/83
[2020-07-26 08:36] VITALS: BP 144/103
[2020-07-26 08:48] LABS: PLATELET COUNT 187 x10^3mcL (130-400)
[2020-07-26 09:05] LABS: RED CELL DISTRIBUTION WIDTH 15.2 % (11.5-14.5)
[2020-07-26 09:08] LABS: CALCIUM 8.4 mg/dL (8.5-10.1); CARBON DIOXIDE 29.6 mmol/L (21-32); CREATININE SERUM 3.9 mg/dL (0.7-1.3); MAGNESIUM 2.9 mg/dL (1.8-2.4)
[2020-07-26 10:32] LABS: BAND NEUTROPHIL 4 % (0-10); MONOCYTE 5 % (0-7); SEGMENTED NEUTROPHILS 86 % (37-75)
[2020-07-26 10:33] LABS: PLATELET MORPHOLOGY PLATELETS NORMAL; rbc morphology (normal/abnorm) ABNORMAL (NORMAL)
[2020-07-26 12:19] VITALS: BP 126/71
[2020-07-26 17:00] VITALS: BP 126/76
[2020-07-26 20:29] VITALS: BP 128/83
[2020-07-27 05:49] VITALS: BP 130/75
[2020-07-27 07:54] LABS: CALCIUM 8.5 mg/dL (8.5-10.1); CARBON DIOXIDE 29.5 mmol/L (21-32); MAGNESIUM 3.5 mg/dL (1.8-2.4); POTASSIUM SERUM 4.1 mmol/L (3.5-5.1)
[2020-07-27 07:59] LABS: CREATININE SERUM 4.5 mg/dL (0.7-1.3)
[2020-07-27 08:05] LABS: PLATELET COUNT 189 x10^3mcL (130-400)
[2020-07-27 08:07] VITALS: BP 123/78
[2020-07-27 08:49] LABS: RED CELL DISTRIBUTION WIDTH 14.8 % (11.5-14.5)
[2020-07-27 11:38] LABS: SEGMENTED NEUTROPHILS 72 % (37-75)
[2020-07-27 11:39] LABS: BAND NEUTROPHIL 5 % (0-10); MONOCYTE 10 % (0-7); rbc morphology (normal/abnorm) ABNORMAL (NORMAL)
[2020-07-27 11:40] LABS: PLATELET MORPHOLOGY LARGE PLATELET SEEN; tear drop cell (dacryocyte) 1+
[2020-07-27 12:25] VITALS: BP 105/53
[2020-07-27 16:50] VITALS: BP 116/63
[2020-07-27 21:08] VITALS: BP 128/87
[2020-07-28 06:21] VITALS: BP 150/90
[2020-07-28 07:24] LABS: BASOPHIL % 0.2 % (0-2); PLATELET COUNT 192 x10^3mcL (130-400)
[2020-07-28 07:58] LABS: CARBON DIOXIDE 31.5 mmol/L (21-32); POTASSIUM SERUM 4.5 mmol/L (3.5-5.1)
[2020-07-28 07:59] LABS: CREATININE SERUM 4.1 mg/dL (0.7-1.3)
[2020-07-28 09:30] VITALS: BP 147/99
[2020-07-28 11:55] LABS: UA SPECIFIC GRAVITY 1.015 (1.005-1.035); microscopic required? YES; urine erythrocyte TRACE (NEGATIVE)
[2020-07-28 12:38] VITALS: BP 136/76
[2020-07-28 15:56] VITALS: BP 116/60
[2020-07-28 20:27] VITALS: BP 110/64
[2020-07-29] VITALS (7 sets, daily range): BP systolic 113–143; BP diastolic 59–102
[2020-07-29 09:39] LABS: CALCIUM 8.5 mg/dL (8.5-10.1); CARBON DIOXIDE 29.1 mmol/L (21-32); CREATININE SERUM 3.5 mg/dL (0.7-1.3); POTASSIUM SERUM 4.6 mmol/L (3.5-5.1)
[2020-07-30 05:26] VITALS: BP 131/89
[2020-07-30 08:09] LABS: BASOPHIL % 0.2 % (0-2); PLATELET COUNT 245 x10^3mcL (130-400); RED CELL DISTRIBUTION WIDTH 15.1 % (11.5-14.5)
[2020-07-30 08:36] VITALS: BP 135/89
[2020-07-30 08:56] LABS: CALCIUM 8.5 mg/dL (8.5-10.1); CARBON DIOXIDE 28.4 mmol/L (21-32); CREATININE SERUM 3.3 mg/dL (0.7-1.3); POTASSIUM SERUM 4.4 mmol/L (3.5-5.1)
[2020-07-30 13:05] VITALS: BP 116/62
[2020-07-30 17:50] VITALS: BP 107/68
[2020-07-30 20:49] VITALS: BP 130/72
[2020-07-31 05:30] VITALS: BP 133/89
[2020-07-31 07:07] LABS: BASOPHIL % 0.3 % (0-2); PLATELET COUNT 256 x10^3mcL (130-400)
[2020-07-31 07:18] LABS: CALCIUM 8.5 mg/dL (8.5-10.1); CARBON DIOXIDE 27.9 mmol/L (21-32); CREATININE SERUM 2.8 mg/dL (0.7-1.3); POTASSIUM SERUM 4.3 mmol/L (3.5-5.1)
[2020-07-31 07:26] LABS: RED CELL DISTRIBUTION WIDTH 14.9 % (11.5-14.5)
[2020-07-31 08:01] VITALS: BP 140/86
[2020-07-31 16:29] VITALS: BP 107/71
[2020-07-31 20:17] VITALS: BP 135/82
[2020-08-01 05:28] VITALS: BP 135/89
[2020-08-01 07:34] LABS: CARBON DIOXIDE 28.1 mmol/L (21-32); CREATININE SERUM 2.1 mg/dL (0.7-1.3); POTASSIUM SERUM 4.1 mmol/L (3.5-5.1)
[2020-08-01 07:54] VITALS: BP 136/88
[2020-08-01 11:36] VITALS: BP 118/76
[2020-08-01 15:39] VITALS: BP 125/84
[2020-08-01 20:30] VITALS: BP 149/103
[2020-08-02 05:30] VITALS: BP 119/82
[2020-08-02 07:05] LABS: CALCIUM 8.4 mg/dL (8.5-10.1); CARBON DIOXIDE 29.3 mmol/L (21-32); CREATININE SERUM 1.8 mg/dL (0.7-1.3); MAGNESIUM 2.2 mg/dL (1.8-2.4); PHOSPHOROUS 4.2 mg/dL (2.5-4.9)
[2020-08-02 07:10] LABS: RED CELL DISTRIBUTION WIDTH 15.2 % (11.5-14.5)
[2020-08-02 08:07] VITALS: BP 145/106
[2020-08-02 11:38] VITALS: BP 142/98
[2020-08-02 12:52] LABS: rbc morphology (normal/abnorm) NORMAL (NORMAL)
[2020-08-02 12:53] LABS: PLATELET COUNT 315 x10^3mcL (130-400)
[2020-08-02 17:30] VITALS: BP 141/91
[2020-08-02 20:05] VITALS: BP 136/88
[2020-08-03 05:23] VITALS: BP 132/90
[2020-08-03 07:50] VITALS: BP 133/90
[2020-08-03 11:46] VITALS: BP 128/86
[2020-08-03 15:58] VITALS: BP 148/106
[2020-08-04 06:19] VITALS: BP 152/111
[2020-08-04 09:00] VITALS: BP 150/100
[2020-08-04 11:17] LABS: CALCIUM 9.6 mg/dL (8.5-10.1); CARBON DIOXIDE 25.1 mmol/L (21-32); CHLORIDE SERUM 104 mmol/L (98-107); CREATININE SERUM 1.1 mg/dL (0.7-1.3); GFR1 > 60 mL/min; GLUCOSE SERUM 119 mg/dL (74-106); SODIUM SERUM 140 mmol/L (136-145)
[2020-08-04 13:18] VITALS: BP 137/79
[2020-08-04 16:15] VITALS: BP 118/67
[2020-08-04 21:23] VITALS: BP 122/67
[2020-08-05 06:22] VITALS: BP 127/93
[2020-08-05 08:26] VITALS: BP 133/94
[2020-08-05 12:20] VITALS: BP 141/82
[2020-08-05 12:22] VITALS: BP 141/82
== END 2020-08-05 12:50 | disposition short-term general hospital (02) | DRG 137 ==
LOC: ED 16:22 → DU 19:19 → MU 19:19 → DU 20:46 → MU 08-02 11:53
PROVIDERS: Emergency Medicine; Family Medicine; Internal Medicine; ADMIT Internal Medicine; ATTEND Internal Medicine
DX: J69.0 Pneumonitis due to inhalation of food and vomit (principal); N17.0 Acute kidney failure with tubular necrosis; J96.00 Acute respiratory failure, unspecified whether with hypoxia or hypercapnia; R65.11 Systemic inflammatory response syndrome (SIRS) of non-infectious origin with acute organ dysfunction; E87.0 Hyperosmolality and hypernatremia; G80.9 Cerebral palsy, unspecified; J44.0 Chronic obstructive pulmonary disease with (acute) lower respiratory infection; E44.0 Moderate protein-calorie malnutrition; K21.9 Gastro-esophageal reflux disease without esophagitis; J45.909 Unspecified asthma, uncomplicated; Z98.2 Presence of cerebrospinal fluid drainage device; Z79.899 Other long term (current) drug therapy; Z68.31 Body mass index [BMI] 31.0-31.9, adult; B96.5 Pseudomonas (aeruginosa) (mallei) (pseudomallei) as the cause of diseases classified elsewhere
CPT/HCPCS: 83880; 84439; 85378; 87804; G0378; J0456; J1940; J2185; J2405; J2543; J3370; J3480; J7030; J7050; J7060; J7070; J8597; U0003

== ENCOUNTER 2020-11-18 08:15 | Emergency (ER) | payer OTHER, MEDICAID ==
[~2020-11-18] VITALS: Ht 167.6 cm; Wt 72.6 kg
[~2020-11-18 08:15] MED LIST changes: +BENADRYL ALLERG25 M1 JT; +DEPL JT; +LACTULOSE10 GM/153 JT; +LOCALNESIUM1 TAB PO; +POLYETHYLENE GL1 PO1 PO; +PREVACID15 M2 JT; +PROPRANOLOL HCL20 MG JT; +RISPERDAL1 M1 JT; +TRIHEXYPHENIDYL2 M1 JT; +VAL5 JT
[2020-11-18 08:24] VITALS: Ht 167.6 cm; Wt 72.6 kg
[2020-11-18 10:24] VITALS: BP 103/59
== END 2020-11-18 10:24 | disposition home or self-care (01) ==
LOC: ED 08:15
DX: K94.23 Gastrostomy malfunction (principal); J44.9 Chronic obstructive pulmonary disease, unspecified; I10 Essential (primary) hypertension; K21.9 Gastro-esophageal reflux disease without esophagitis; Z43.1 Encounter for attention to gastrostomy; Z98.890 Other specified postprocedural states
CPT/HCPCS: Q9967